=== PATIENT | male | born 1955 | race Caucasian/White ===

== ENCOUNTER 2017-01-13 08:48 | Day surgery (SDC) | payer MEDICARE, MEDICAID ==
[~2017-01-13] VITALS: Ht 190.5 cm; Wt 99.9 kg
[2017-01-13] VITALS (39 sets, daily range): BP systolic 107–167; BP diastolic 56–94; PULSE 48–88; RESP 14–43; TEMP 96.4–97.7; O2SAT 73–100; Ht 190.5 cm; Wt 99.9 kg
[~2017-01-13 08:48] MED LIST: ACET-2321 PO; ACET-2723 PO; BISA10SU8 RECTALLY; CETI-115 PO; DIPH25CA84 PO; GABA-338 PO; LIDOCAINE 1% (10mg/ml) 2ml SDV INJ ONE; MAGN400O4 PO; MELO-273 PO; MULT-933 PO; NAPR550T4 PO; TAMS0.4C47 PO; TRIA15CR3 TOP
--- OUTSIDE RECORDS SUMMARY | 2017-01-13 08:51 | XMS REPORT | Summary of Care ---
Author Author Jovany Nunez M.D. Organization Unknown Address [address] [place] [address] Phone Unavailable Care Team Providers Care Agronomy Location Manager Name Role Phone Jvoany Nunez M.D. Unavailable Unavailable Agustín Major Unavailable Unavailable Unavailable Unavailable Functional Status Name Dates Details Functional status health issues are not documented Status: Name Dates Details Cognitive status health issues are not documented Status: Problems Name Dates Details Abdominal pain (789.00, R10.9) Status: Active Nodular prostate without urinary obstruction (600.10, N40.2) Status: Active Pelvic pain (R10.2) Status: Active Skin lesion of face (709.9, L98.9) Status: Active Benign prostatic hypertrophy with urinary obstruction (600.01, N40.1) Status: Active Frequency of urination (788.41, R35.0) Status: Active Abscess of buttock (682.5, L02.31) Status: Active Malaise and fatigue (780.79, R53.81) Status: Active Rash of entire body (782.1, R21) Status: Active Tinea pedis (110.4, B35.3) Status: Active Constipation (564.00, K59.00) Status: Active Ataxic gait (781.2, R26.0) Status: Active Falls frequently (V15.88, R29.6) Status: Active Lower back pain (724.2, M54.5) Status: Active Lumbar radiculopathy (724.4, M54.16) Status: Active Spinal stenosis (724.00, M48.00) Status: Active Tension type headache (339.10, G44.209) Status: Active Medications Name Dates Details Aspirin 81 MG TABS TAKE 2 TABLET Twice daily PRN * Start 07-Nov-2015 Active Ibuprofen 200 MG Oral Tablet TAKE 1 TABLET EVERY 4 TO 6 HOURS NEEDED. * Refills: 0 * Start 07-Nov-2015 Active Allergies and Adverse Reactions Name Dates Details Iodinated Contrast Media (Allergy) Status: Active Iodine Crystals (Allergy) Status: Active Past Medical History Name Dates Details History of Plantar fasciitis (728.71, M72.2) Status: Resolved Procedures Procedure Dates Details History of Tonsillectomy History of Hernia Repair History of Plantar Fasciectomy CT HEAD WITHOUT AND WITH IV CONTRAST Ordered: 12-Sep-2016 ULTRASOUND CAROTID Ordered: 12-Sep-2016 ORTHO SPINE LUMBAR (5 VIEWS) Ordered: 15-Sep-2016 Immunization Name Dates Details Influenza on: 31-May-2012 Influenza on: 01-Jul-2013 Family History Name Dates Details Family history of diabetes mellitus (V18.0, Z83.3) Comments: Family History Status: Active Name Dates Details Family history of leukemia (V16.6, Z80.6) Status: Active Social History Name Dates Details - Status: Name Dates Details Smoker. current status unknown Current every day smoker Vital Signs Date Test Result Details 17-Sep-2016 10:26 BP Systolic 130 mm[Hg] Status: Comments: Location: ; Position: BP Diastolic 82 mm[Hg] Status: Comments: Location: ; Position: Heart Rate 86 /min Status: Comments: Location: ; Weight 199.5 lb Status: Body Mass Index Calculated 25.61 kg/m2 Status: Body Surface Area Calculated 2.17 m2 Status: 08-Sep-2016 14:50 BP Systolic 128 mm[Hg] Status: Comments: Location: ; Position: BP Diastolic 72 mm[Hg] Status: Comments: Location: ; Position: Heart Rate 96 /min Status: Comments: Location: ; Weight 200 lb Status: Body Mass Index Calculated 25.68 kg/m2 Status: Body Surface Area Calculated 2.17 m2 Status: Results Date Description Value Details 08-Sep-2016 16:19 CBC w/ Auto Diff 7150 WBC 7.8 K/uL Range: 4.5-11.0 RBC 3.98 mil/uL (Below low threshold) Range: 4.20-5.40 HGB 13.6 g/dL (Below low threshold) Range: 14.0-18.0 HCT 40.5 % (Below low threshold) Range: 42.0-53.0 MCV 101.9 fL (Above high threshold) Range: 80.0-99.0 MCH 34.2 pg (Above high threshold) Range: 27.3-32.5 MCHC 33.6 % Range: 32.0-36.0 RDW 13.9 % Range: 11.6-14.8 PLATELETS 256 K/uL Range: 150-400 MPV 7.9 fL Range: 6.0-11.0 %NEUTRO 55.2 % Range: 37.0-80.0 %LYMPHS 32.8 % Range: 13.0-50.0 %MONO 4.1 % Range: 0.0-12.0 %EOS 2.7 % Range: 0.0-7.0 %BASO 0.6 % Range: 0.0-2.5 %AMISH 4.6 % Range: 0.0-5.0 NEUTRO 4.3 K/uL Range: 2.0-6.9 LYMPHS 2.6 K/uL Range: 0.6-3.4 MONOS 0.3 K/uL Range: 0.0-0.9 EOS 0.2 K/uL Range: 0.0-0.7 BASO 0.1 K/uL Range: 0.0-0.2 16:38 Comprehensive Metabolic Panel 1212 SODIUM 137 mmol/L Range: 133-144 POTASSIUM 4.1 mmol/L Range: 3.5-5.1 CHLORIDE 100 mmol/L Range: 98-110 CARBON DIOXIDE 26.8 mmol/L Range: 23.0-33.0 ANION GAP 10 mmol/L Range: 6-16 BUN 13 mg/dL Range: 7-18 CREATININE, SERUM 0.89 mg/dL Range: 0.70-1.30 BUN:CREATININE RATIO 15 EST GFR, >60 ml/min Range: >60 EST GFR, NON-AFR [place] >60 ml/min Range: >60 Comments: EST GFR is reported in ml/min per 1.73 m2 of body surface area. ----- GLUCOSE 84 mg/dL Range: 70-100 ALK PHOSPHATASE 82 U/L Range: 46-116 TOTAL BILIRUBIN 0.30 mg/dL Range: 0.20-1.00 AST 15 U/L Range: 8-35 ALT 23 U/L Range: 16-63 ALBUMIN 4.1 g/dL Range: 3.4-5.0 TOTAL PROTEIN 7.1 g/dL Range: 6.4-8.2 A/G RATIO 1.4 units Range: 1.0-1.8 CALCIUM 8.6 mg/dL Range: 8.5-10.1 16:43 THYROID STIM. HORMONE 3602 THYROID STIM. HORMONE 1.000 uIU/mL Range: 0.550-4.780 Comments: No established reference ranges for infants and children <2 years of age----- 16:43 VITAMIN B12 3606 VITAMIN B12 579 pg/mL Range: 211-911 16:47 FREE T4 3604 FREE T4 1.05 ng/dL Range: 0.80-1.67 Plan of Care Name Dates Details Planned Observations Planned Goals not documented Planned Encounters Appointment; Provider: Schedule Radiology On 24-Sep-2016 14:30 Appointment; Provider: Schedule Radiology On 24-Sep-2016 14:00 Appointment; Provider: Agustín Major D.O. On 22-Sep-2016 11:00 Interventions Provided Labs/Procedures/Imaging* ORTHO SPINE LUMBAR (5 VIEWS); To be Done: 17 Sep 2016 Instructions Name Dates Details Instructions not documented Encounters Appointment; Agustín Major D.O. Encounter Diagnosis: Problem not documented On 08-Sep-2016 14:45 Appointment; Lizette Bell A.P.R.N. Encounter Diagnosis: Problem not documented On 07-Nov-2015 10:00 Appointment; Ian Vences M.D. Encounter Diagnosis: Problem not documented On 09:00 Appointment; Corey Bright M.D.|Tony,WILFREDO,ASHLEY, Encounter Diagnosis: Problem not documented On 30-Jan-2015 11:00 Appointment; Agustín Major D.O. Encounter Diagnosis: Problem not documented On 16-Jan-2015 13:45 Appointment; Ian Vences M.D. Encounter Diagnosis: Problem not documented On 08-Jan-2015 09:00"
--- OUTSIDE RECORDS SUMMARY | 2017-01-13 08:51 | XMS REPORT | Summary of Care ---
Author Author Agustín Major D.O. Organization Unknown Address [address] [place], [place] [id number] Phone Unavailable Care Team Providers Care Maintenance Helper Utility Engineer Name Role Phone Agustín Major D.O. Unavailable Unavailable Agustín Major Unavailable Unavailable Unavailable [...] Status: Active Constipation (564.00, K59.00) Status: Active Lower back pain (724.2, M54.5) Status: Active Tension type headache (339.10, G44.209) Status: Active Falls frequently (V15.88, R29.6) Status: Active Ataxic gait (781.2, R26.0) Status: Active Paresthesias (782.0, R20.2) Status: Active Peripheral neuropathy (356.9, G62.9) Status: Active Active smoker (305.1, F17.200) Status: Active Claustrophobia (300.29, F40.240) Status: Active Dry skin dermatitis (692.89, L85.3) Status: Active Tendonitis of shoulder, left (726.10, M75.82) Status: Active Tendonitis of shoulder, right (726.10, M75.81) Status: Active Lumbar radiculopathy (724.4, M54.16) Status: Active Spinal stenosis (724.00, M48.00) Status: Active Medications Name Dates Details Aspirin 81 MG TABS TAKE 2 TABLET Twice daily PRN * Start 07-Nov-2015 Active Ibuprofen 200 MG Oral Tablet TAKE 1 TABLET EVERY 4 TO 6 HOURS NEEDED. * Refills: 0 * Start 07-Nov-2015 Active Acetaminophen 500 MG Oral Tablet TAKE 1 TABLET EVERY 4 TO 6 HOURS NEEDED. * Refills: 0 * Start 30-Sep-2016 Active Multivitamin Men Oral Tablet TAKE 1 TABLET DAILY. * Refills: 0 * Start 30-Sep-2016 Active DiazePAM 10 MG Oral Tablet TAKE 1 TABLET 30 MINUTES PRIOR TO MRI. * Quantity: 1 Refills: 0 Major D.O., Agustín * Start 30-Sep-2016 Active Flomax 0.4 MG Oral Capsule TAKE 1 CAPSULE Daily * Refills: 0 * Start 30-Sep-2016 Active Gabapentin 300 MG Oral Capsule TAKE 1 CAPSULE Bedtime * Refills: 0 * Start 30-Sep-2016 Active Meloxicam 7.5 MG Oral Tablet Take 1 tablet daily * Quantity: 30 Refills: 0 Major D.O., Agustín * Start 20-Oct-2016 Active Allergies and Adverse Reactions Name Dates Details Iodinated Contrast Media (Allergy) Status: Active Iodine Crystals (Allergy) Status: Active Past Medical History Name Dates Details History of dizziness (V13.89, Z87.898) Status: Resolved History of headache (V13.89, Z87.898) Status: Resolved History of neck problems (V15.89, Z87.898) Status: Resolved History of Plantar fasciitis (728.71, M72.2) Status: Resolved History of tinnitus (V12.49, Z86.69) Status: Resolved Procedures Procedure Dates Details History of Tonsillectomy History of Hernia Repair History of Plantar Fasciectomy CT HEAD WITHOUT AND WITH IV CONTRAST Ordered: 17-Sep-2016 CT HEAD WITHOUT AND WITH IV CONTRAST Ordered: 12-Sep-2016 ORTHO SPINE LUMBAR (5 VIEWS) Ordered: 15-Sep-2016 XRay SHOULDER-Left Ordered: 20-Oct-2016 XRay SHOULDER-Right Ordered: 20-Oct-2016 Immunization Name Dates Details Influenza on: 31-May-2012 Influenza on: 01-Jul-2013 Family History Name Dates Details Family history of diabetes mellitus (V18.0, Z83.3) Comments: Family History Status: Active Name Dates Details Family history of cerebrovascular accident (CVA) (V17.1, Z82.3) Status: Active Name Dates Details Family history of leukemia (V16.6, Z80.6) Status: Active Social History Name Dates Details - Status: Name Dates Details Smoker. current status unknown Current every day smoker Vital Signs Date Test Result Details 31-Oct-2016 09:00 BP Systolic 132 mm[Hg] Status: Comments: Location: ; Position: BP Diastolic 70 mm[Hg] Status: Comments: Location: ; Position: Heart Rate 88 /min Status: Comments: Location: ; Weight 200 lb Status: Physical Findings 97 Status: Comments: O2 Saturation Body Mass Index Calculated 25.68 kg/m2 Status: Body Surface Area Calculated 2.17 m2 Status: 20-Oct-2016 12:54 BP Systolic 118 mm[Hg] Status: Comments: Location: ; Position: BP Diastolic 66 mm[Hg] Status: Comments: Location: ; Position: Heart Rate 62 /min Status: Comments: Location: ; Weight 204 lb Status: Physical Findings 95 Status: Comments: O2 Saturation Body Mass Index Calculated 26.19 kg/m2 Status: Body Surface Area Calculated 2.19 m2 Status: Results Date Description Value Details 01-Oct-2016 10:51 MCGRAW FibroSure 198410 Height: 74 inch Range: 0 14:35 ANTINUCLEAR ANTIBODIES 3902 ANTINUCLEAR ANTIBODIES 25 AU/mL Range: 0-120 Comments: REFERENCE VALUE INTERPRETATION 0-99 U/mL - NEGATIVE 100 - 120 U/mL - EQUIVOCAL >120 U/mL - POSITIVE--- -- 02-Oct-2016 07:37 Immunofixation, Serum [id number] Comments: Testing performed at: [DA] [facility], [address] [place] [address] [address], [place], [address], , Administrative Job Titles: OPAL Hanna MD IMMUNOFIXATION RESULT, SERUM Comment Comments: An apparent normal immunofixation pattern.----- IMMUNOGLOBULIN G, QN, SERUM 699 mg/dL (Below low threshold) Range: 700- 1600 IMMUNOGLOBULIN A, QN, SERUM 224 mg/dL Range: 61-437 IMMUNOGLOBULIN M, QN, SERUM 118 mg/dL Range: 20-172 07:37 Protein Elec + Interp, Serum [id number] Comments: [facility] performed at: [ DA] [facility], [address] [place] [address] [address], [place], [address], , Administrative Job Titles: OPAL Hanna MD PROTEIN, TOTAL, SERUM 6.9 g/dL Range: 6.0-8.5 ALBUMIN 4.4 g/dL Range: 2.9-4.4 RCUJV-8-ELNSFHII 0.2 g/dL Range: 0.0-0.4 CMTSS-5-LZQOJLGS 0.6 g/dL Range: 0.4-1.0 BETA GLOBULIN 1.0 g/dL Range: 0.7-1.3 GAMMA GLOBULIN 0.8 g/dL Range: 0.4-1.8 M-SPIKE Not Observed g/dL Range: Not Observed GLOBULIN, TOTAL 2.5 g/dL Range: 2.2-3.9 A/G RATIO 1.8 (Above high threshold) Range: 0.7-1.7 PLEASE NOTE: Comment Comments: Protein electrophoresis scan will follow via computer,mail, or mannequin mounter delivery.----- P E INTERPRETATION, S Comment Comments: The SPE pattern appears essentially unremarkable. Evidenceof monoclonal protein is not apparent.----- 07-Oct-2016 15:20 MRI LUMBAR SPINE Comments: Exam Date: 10/07/2016 13: 02Dictation Date: 10/07/2016 15:20 XMR SPINE LUMBAR 20-Oct-2016 14:10 XRay SHOULDER-BILATERAL Comments: Exam Date: 10/20/2016 13: 38Dictation Date: 10/20/2016 14:10 X SHOULDER COMP (MIN 2V) BILAT Plan of Care Name Dates Details Planned Observations Planned Goals not documented Instructions Name Dates Details Instructions not documented Encounters Appointment; Agustín Major D.O. Encounter Diagnosis: Problem not documented On 20-Oct-2016 13:15 Appointment; Agustín Major D.O. Encounter Diagnosis: Problem not documented On 01-Oct-2016 09:00 Appointment; Dio Couch M.D. Encounter Diagnosis: Problem not documented On 30-Sep-2016 09:00 Appointment; Agustín Major D.O. Encounter Diagnosis: Problem not documented On 22-Sep-2016 11:00 Appointment; Jovany Nunez M.D. Encounter Diagnosis: Problem not documented On 17-Sep-2016 10:15 Appointment; Agustín Major D.O. Encounter Diagnosis: Problem not documented On 08-Sep-2016 14:45 Appointment; Lizette Bell A.P.R.N. Encounter Diagnosis: Problem not documented On 07-Nov-2015 10:00 Appointment; Ian Vences M.D. Encounter Diagnosis: Problem not documented On 09:00 Appointment; Corey Bright M.D.,[facility], Encounter Diagnosis: Problem not documented On 30-Jan-2015 11:00 Appointment; Agustín Major D.O. Encounter Diagnosis: Problem not documented On 16-Jan-2015 13:45 Appointment; Ian Vences M.D. Encounter Diagnosis: Problem not documented On 08-Jan-2015 09:00
--- OUTSIDE RECORDS SUMMARY | 2017-01-13 08:51 | XMS REPORT | Continuity of Care Document ---
Author Author [facility] Organization [facility] Address Unknown Phone Unavailable Allergies Medications Problems Date Dx Coded Attending Type Code Diagnosis Diagnosed By 02/01/2016 UNASSIGNED DOCTORDOCTOR Lam [id number] Other chronic pain 02/01/2016 UNASSIGNED DOCTORDOCTOR Lam [id number] Spinal stenosis, site unspecified Procedures Code Description Performed By Performed On A0425 01/24/2016 A0429 01/24/2016 Results Test Result Range UR DRUGS OF ABUSE SCREEN - 08/29/16 16:30 *COCAINE NEGATIVE NEG <150 *BARBITURATES NEGATIVE NEG <200 *BENZODIAZEINE NEGATIVE NEG <200 *AMPHETAMINE NEGATIVE NEG <500 *CANNABINOIDS POSITIVE NEG <50 *OPIATES NEGATIVE NEG <300 *PCP NEGATIVE NEG <25 CBC WITH PLATELET AND DIFFERENTIAL - 08/29/16 17:11 SEGS 76.3 % NRG *BASOPHILS 0.7 % NRG *EOSINOPHILS 0.6 % NRG AUTOMATED DIFF PERFORMED NRG *LYMPHOCYTES 17.5 % NRG *MONOCYTES 4.9 % NRG *ABSOLUTE BASOPHILS 0.10 10*3/uL 0.00- 0.20 *ABSOLUTE EOSINOPHILS 0.10 10*3/uL 0.00- 0.50 *ABSOLUTE LYMPHOCYTES 2.10 10*3/uL 1.00- 3.00 *ABSOLUTE MONOCYTES 0.60 10*3/uL 0.30- 1.00 *ABSOLUTE NEUTROPHILS 9.10 10*3/uL 1.80- 7.80 MPV 7.4 fL 7.4-10.4 PLATELETS 229 10*3/uL 159-386 WBC 11.9 10*3/uL 3.6-11.2 RBC 4.19 4.06-5.63 HEMOGLOBIN 13.9 12.5-16.3 HEMATOCRIT 41.9 % 36.7-47.1 MCV 100.0 fL 80.0-100.0 MCH 33.2 pg 27.0-33.0 MCHC 33.1 32.0-36.0 RDW 13.5 % 12.3-17.0 RDWSD 47.3 37.1-47.8 COMPREHENSIVE METABOLIC PANEL - 08/29/16 17:11 BILIFUBIN TOTAL 0.40 0.20-1.00 TOTAL PROTEIN 7.4 6.4-8.2 ALBUMIN 4.3 3.4-5.0 *GLOBULIN 3.1 2.3-3.5 *A/G RATIO 1.4 1.5-2.2 ALK PHOS 81 U/L 46-116 ALT (SGPT) 24 U/L 14-59 AST (SGOT) 19 U/L 15-37 ALCOHOL - 08/29/16 17:11 ALCOHOL 0.116 NRG GFR ESTIMATION - 08/29/16 17:11 *GFR EST NON AFR [place] CITIZ[place] >90 mL/min NRG *GRFA EST AFR AMER >90 mL/min NRG MAGNESIUM - 08/29/16 17:11 MAGNESIUM 2.0 1.8-2.4 TSH - 08/29/16 17:11 TSH 0.251 u[IU]/L 0.340-4.820 PHOSPHORUS - 08/29/16 17:11 PHOSPHORUS 3.7 2.6-4.7 VITAMIN B12 & FOLATE - 08/29/16 17:11 VITAMIN B12 283 pg/mL 180-914 URINALYSIS (CULTURE PRN) - 08/29/16 20:20 *URINE APPEARANCE CLEAR CLEAR *URINE BILIRUBIN NEGATIVE NEGATIVE *URINE BLOOD NEGATIVE NEGATIVE *URINE GLUCOSE NEGATIVE NEGATIVE *URINE KETONES NEGATIVE NEGATIVE *URINE LEUKOCYTES NEGATIVE NEGATIVE *URINE NITRITES NEGATIVE NEGATIVE URINE PH 5.5 5.0-8.0 *URINE PROTEIN NEGATIVE NEGATIVE URINE SPECIFIC GRAVITY 1.020 <=1.005->= 1.030 *URINE UROBILINOGEN 0.2 0.2-1.0 *URINE COLOR YELLOW STRAW/YELL/DK YELL Encounters ACCT No. Visit Date/Time Discharge Status Pt. Type Provider Facility Loc./Unit Complaint [id number] 08/29/2016 15:38:00 2015 15:46:59 DIS Outpatient UNASSIGNED DOCTOR, DOCTOR WEAKNESS IN EXTREMITIES [id number] 08/29/2016 16:08:00 2015 01:37:47 DIS Emergency RASHAD SAMANO PERIPHERAL NEUROPATHY [id number] 01/24/2016 01:12:00 2015 03:30:00 DIS Outpatient UNASSIGNED DOCTOR, DOCTOR <PV2.3.2>Other chronic pain</PV2.3.2><PV2.3.2>CHRONIC PAIN</ PV2.3.2><PV2.3.2>Other chronic pain</PV2.3.2><PV2.3.2>Spinal stenosis, site unspecified</PV2.3.2> [id number] 01/24/2016 01:29:00 2015 03:43:56 DIS Emergency RASHAD SAMANO PAIN
--- OUTSIDE RECORDS SUMMARY | 2017-01-13 08:51 | XMS REPORT | Summary of Care ---
Author Author Agustín Major D.O. Organization Unknown Address [address], [place] [address] Phone Unavailable Care Team Providers Care Radar Tester Name Role Phone Agustín Major D.O. Unavailable [...] Lower back pain (724.2, M54.5) Status: Active Spinal stenosis (724.00, M48.00) Status: Active Tension type headache (339.10, G44.209) Status: Active Lumbar radiculopathy (724.4, M54.16) Status: Active Falls frequently (V15.88, R29.6) Status: Active Ataxic gait (781.2, R26.0) Status: Active Paresthesias (782.0, R20.2) Status: Active Peripheral neuropathy (356.9, G62.9) Status: Active Dry skin dermatitis (692.89, L85.3) Status: Active Medications Name Dates Details Aspirin [...] 10 MG Oral Tablet TAKE 1 TABLET DAILY. * Refills: 0 * Start 30-Sep-2016 Active Flomax 0.4 MG Oral Capsule TAKE 1 CAPSULE Daily * Refills: 0 * Start 30-Sep-2016 Active Gabapentin 300 MG Oral Capsule TAKE 1 CAPSULE Bedtime * Refills: 0 * Start 30-Sep-2016 Active Allergies and Adverse Reactions Name Dates [...] of Hernia Repair History of Plantar Fasciectomy ANTINUCLEAR ANTIBODIES 3902 Ordered: 30-Sep-2016 Immunofixation, Serum [id number] Ordered: 30-Sep-2016 Protein Elec + Interp, Serum [id number] Ordered: 30-Sep-2016 MRI LUMBAR SPINE Ordered: 30-Sep-2016 CT HEAD WITHOUT AND WITH IV CONTRAST Ordered: 12-Sep-2016 ORTHO SPINE LUMBAR (5 VIEWS) Ordered: 15-Sep-2016 CT HEAD WITHOUT AND WITH IV CONTRAST Ordered: 17-Sep-2016 Immunization Name Dates Details Influenza on: 31-May-2012 [...] smoker Vital Signs Date Test Result Details 01-Oct-2016 08:51 Temperature 98.5 f Status: Heart Rate 80 /min Status: Comments: Location: ; Weight 194 lb Status: Body Mass Index Calculated 24.91 kg/m2 Status: Body Surface Area Calculated 2.15 m2 Status: 30-Sep-2016 09:25 BP Systolic 120 mm[Hg] Status: Comments: Location: ; Position: BP Diastolic 68 mm[Hg] Status: Comments: Location: ; Position: Heart Rate 84 /min Status: Comments: Location: ; Weight 196 lb Status: Body Mass Index Calculated 25.17 kg/m2 Status: Body Surface Area Calculated 2.15 m2 Status: 22-Sep-2016 10:54 BP Systolic 132 mm[Hg] Status: Comments: Location: ; Position: BP Diastolic 72 mm[Hg] Status: Comments: Location: ; Position: Heart Rate 70 /min Status: Comments: Location: ; Weight 205 lb Status: Body Mass Index Calculated 26.32 kg/m2 Status: Body Surface Area Calculated 2.2 m2 Status: 17-Sep-2016 10:26 BP Systolic 130 mm[Hg] Status: Comments: Location: ; Position: BP Diastolic 82 mm[Hg] Status: Comments: Location: ; Position: Heart Rate 86 /min Status: Comments: Location: ; Weight 199.5 lb Status: Body Mass Index Calculated 25.61 kg/m2 Status: Body Surface Area Calculated 2.17 m2 Status: 08-Sep-2016 14:50 BP Systolic 128 mm[Hg] Status: BP Diastolic 72 mm[Hg] Status: Heart Rate 96 /min Status: Comments: Location: [...] >60 ml/min Range: >60 EST GFR, NON-AFR [place]ISH >60 ml/min Range: >60 Comments: EST GFR [...] 3604 FREE T4 1.05 ng/dL Range: 0.80-1.67 25-Sep-2016 08:28 CT HEAD WITHOUT IV CONTRAST Comments: Exam Date: 2015 08:14Dictation Date: 09/25/2016 08:28 XC HEAD 09:31 ULTRASOUND CAROTID Comments: Exam Date: 09/25/2016 08:14Dictation Date : 09/25/2016 09:31 XS CAROTID 10:48 MRI CERVICAL SPINE WITHOUT AND WITH CONTRAST (if Hx of Neck Surgery, [place] , MS or RA) Comments: Exam Date: 09/25/2016 09:03Dictation Date: 09/25/2016 10 :48 XMR SPINE CERVICAL WO/W SHEKHAR 30-Sep-2016 11:11 CREATINE KINASE 1300 CREATINE KINASE 173 U/L Range: 39-308 11:24 ERYTHROCYTE SED RATE 7800 ERYTHROCYTE SED RATE 7 mm/60 min. Range: 0-15 Plan of Care Name Dates Details Planned Observations Planned Goals not documented Planned Encounters Appointment; Provider: Agustín Major D.O. On 20-Oct-2016 13:15 Appointment; Provider: Schedule Radiology On 07-Oct-2016 14:00 Instructions Name Dates Details Instructions not documented Encounters Appointment; Dio Couch M.D. Encounter Diagnosis: Problem [...] not documented On 09:00 Appointment; Corey Bright M.D.|Eric|Randolph,ASHLEY|Randolph,ASHLEY, Encounter Diagnosis: Problem not documented On 30-Jan-2015 11:00 Appointment; Agustín Major D.O. Encounter Diagnosis: Problem not documented On 16-Jan-2015 13:45 Appointment; Ian Vences M.D. Encounter Diagnosis: Problem not documented On 08-Jan-2015 09:00"
--- OUTSIDE RECORDS SUMMARY | 2017-01-13 08:51 | XMS REPORT | Summary of Care ---
Author Author Agustín Major D.O. Organization Unknown Address [address], [place] [phone] Phone Unavailable Care Team Providers Care Cardiothoracic Icu Rn Name Role Phone Agustín Major D.O. Unavailable [...] Tension type headache (339.10, G44.209) Status: Active Ataxic gait (781.2, R26.0) Status: Active Lumbar radiculopathy (724.4, M54.16) Status: Active Falls frequently (V15.88, R29.6) Status: Active Medications Name Dates Details Aspirin [...] CONTRAST Ordered: 12-Sep-2016 ULTRASOUND CAROTID Ordered: 12-Sep-2016 MRI CERVICAL SPINE WITHOUT AND WITH CONTRAST (if Hx of Neck Surgery, [place], MS or RA) Ordered: 17-Sep-2016 CT HEAD WITHOUT AND WITH IV CONTRAST Ordered: 17-Sep-2016 ORTHO SPINE LUMBAR (5 VIEWS) Ordered: 15-Sep-2016 [...] smoker Vital Signs Date Test Result Details 22-Sep-2016 10:54 BP Systolic 132 mm[Hg] Status: [...] >60 ml/min Range: >60 EST GFR, NON-AFR [place] >60 ml/min Range: >60 Comments: EST GFR [...] Goals not documented Planned Encounters Appointment; Provider: Dio Couch M.D. On 30-Sep-2016 09:00 Appointment; Provider: Schedule Radiology On 25-Sep-2016 09:45 Appointment; Provider: Schedule Radiology On 25-Sep-2016 09:00 Appointment; Provider: Schedule Radiology On 25-Sep-2016 08:30 Instructions Name Dates Details Instructions not documented Encounters Appointment; Jovany Nunez M.D. Encounter Diagnosis: Problem not documented On 17-Sep-2016 10:15 Appointment; Agustín Major D.O. Encounter Diagnosis: Problem not documented On 08-Sep-2016 14:45 Appointment; Lizette Bell A.P.R.N. Encounter Diagnosis: Problem not documented On 07-Nov-2015 10:00 Appointment; Ian Vences M.D. Encounter Diagnosis: Problem not documented On 09:00 Appointment; Corey Bright M.D.|Eric|ASHLEY Dickson|Randolph,ASHLEY, Encounter Diagnosis: Problem not documented On 30-Jan-2015 11:00 Appointment; Agustín Major D.O. Encounter Diagnosis: Problem not documented On 16-Jan-2015 13:45 Appointment; Ian Vences M.D. Encounter Diagnosis: Problem not documented On 08-Jan-2015 09:00"
--- OUTSIDE RECORDS SUMMARY | 2017-01-13 08:52 | XMS REPORT | Summary of Care ---
Author Author Agustín Major D.O. Organization Unknown Address [address], [place] [id number] Phone Unavailable Care Team Providers Care Zigzag Elastic Attacher Name Role Phone Agustín Major Unavailable Unavailable Unavailable Unavailable Functional [...] >60 ml/min Range: >60 EST GFR, NON-AFR ECUADOREAN >60 ml/min Range: >60 Comments: EST GFR [...] 10 :48 XMR SPINE CERVICAL WO/W SHEKHAR Plan of Care Name Dates Details Planned Observations Planned Goals not documented Planned Encounters Appointment; Provider: Agustín Major D.O. On 20-Oct-2016 13:15 Appointment; Provider: Dio Couch M.D. On 30-Sep-2016 09:00 Instructions Name Dates Details Instructions not documented Encounters Appointment; Agustín Major D.O. Encounter Diagnosis: Problem not documented On 22-Sep-2016 11:00 Appointment; Jovany Nunez M.D. Encounter Diagnosis: Problem not documented On 17-Sep-2016 10:15 Appointment; Agustín Major D.O. Encounter Diagnosis: Problem not documented On 08-Sep-2016 14:45 Appointment; Lizette Bell A.P.R.N. Encounter Diagnosis: Problem not documented On 07-Nov-2015 10:00 Appointment; Schlotterback, Ian, M.D. Encounter Diagnosis: Problem not documented On 09:00 Appointment; Corey Bright M.D.|Eric|Randolph,ASHLEY|Randolph,ASHLEY, Encounter Diagnosis: Problem not documented On 30-Jan-2015 11:00 Appointment; Agustín Major D.O. Encounter Diagnosis: Problem not documented On 16-Jan-2015 13:45 Appointment; Ian Vences M.D. Encounter Diagnosis: Problem not documented On 08-Jan-2015 09:00"
--- OUTSIDE RECORDS SUMMARY | 2017-01-13 08:52 | XMS REPORT | Summary of Care ---
Author Author Valdez Manriquez M.D. Organization Unknown Address [address] [place] [address] [place] [address] Phone Unavailable Care Team Providers Care Repairer Sash And Door Name Role Phone Agustín Major D.O. Unavailable Valdez Manriquez M.D. Unavailable Unavailable Agustín Major Unavailable Unavailable [...] lesion of face (709.9, L98.9) Status: Active Abscess of buttock (682.5, L02.31) [...] Active Lumbar radiculopathy (724.4, M54.16) Status: Active Benign prostatic hypertrophy with urinary obstruction (600.01, N40.1) Status: Active Spinal stenosis (724.00, M48.00) Status: Active Frequency of urination (788.41, R35.0) Status: Active Medications Name Dates Details Aspirin [...] TO MRI. * Quantity: 1 Refills: 0 Agustín Major D.O. * Start 30-Sep-2016 Active Flomax 0.4 MG Oral Capsule TAKE 1 CAPSULE Daily * Refills: 0 * Start 30-Sep-2016 Active Gabapentin 300 MG Oral Capsule TAKE 1 CAPSULE Bedtime * Refills: 0 * Start 30-Sep-2016 Active Meloxicam 7.5 MG Oral Tablet Take 1 tablet daily * Quantity: 30 Refills: 0 Agustín Major D.O. * Start 20-Oct-2016 Active ZyrTEC Allergy 10 MG Oral Tablet TAKE 1 TABLET AT BEDTIME. * Refills: 0 Valdez Manriquez M.D. Start 04-Dec-2016 Active Triamcinolone Acetonide 0.1 % External Cream APPLY 2-3 TIMES DAILY TO AFFECTED AREA(S). * Refills: 0 Valdez Manriquez M.D. Start 04-Dec-2016 Active Allergies and Adverse Reactions Name Dates [...] of Hernia Repair History of Plantar Fasciectomy XRay SHOULDER-Left Ordered: 20-Oct-2016 XRay SHOULDER-Right Ordered: [...] Dates Details - Status: Name Dates Details Current every day smoker Former smoker Vital Signs Date Test Result Details 04-Dec-2016 13:15 BP Systolic 138 mm[Hg] Status: Comments: Location: ; Position: BP Diastolic 70 mm[Hg] Status: Comments: Location: ; Position: Heart Rate 78 /min Status: Comments: Location: ; Height 75 in Status: Weight 204 lb Status: Body Mass Index Calculated 25.5 kg/m2 Status: Body Surface Area Calculated 2.21 m2 Status: Results Date Description Value Details 20-Nov-2016 09:59 Urinalysis, Reflex to Microscopic or Culture PRN 8005 pH 7.5 Range: 5.0-7.5 SP GRAVITY <=1.005 (Abnormal) Range: 1.010-1.030 APPEARANCE CLEAR Range: Clear COLOR YELLOW Range: Straw-Yellow PROTEIN NEGATIVE mg/dL Range: Negative-Trace GLUCOSE NEGATIVE mg/dL Range: Negative KETONE NEGATIVE mg/dL Range: Negative BILIRUB NEGATIVE Range: Negative BLOOD NEGATIVE Range: Negative UROBIL 0.2 EU/dL Range: 0.2-1.0 NITRITE NEGATIVE Range: Negative LEUK NEGATIVE Range: Negative Plan of Care Name Dates Details Planned Observations Planned Goals not documented Planned Encounters Appointment; Provider: Valdez Manriquez M.D. On 15-Dec-2016 14:30 Instructions Name Dates Details Instructions not documented Encounters Appointment; Agustín Major D.O. Encounter Diagnosis: Problem not documented On 31-Oct-2016 09:00 Appointment; Agustín Major D.O. Encounter Diagnosis: [...] not documented On 09:00 Appointment; Corey Bright M.D.,[facility], Encounter Diagnosis: Problem not documented On 30-Jan-2015 11:00 Appointment; Agsutín Major D.O. Encounter Diagnosis: Problem not documented On 16-Jan-2015 13:45 Appointment; Ian Vences M.D. Encounter Diagnosis: Problem not documented On 08-Jan-2015 09:00
--- OUTSIDE RECORDS SUMMARY | 2017-01-13 08:52 | XMS REPORT | Summary of Care ---
Author Author Agustín Major D.O. Unknown Address [address], [place] [id number] Phone Unavailable Care Team Providers Care Tire Classifier Name Role Phone Kennedi Shafer D.O. Unavailable Unavailable Ian Vences M.D. Unavailable Unavailable Agustín Major PP Unavailable Unavailable Unavailable Functional Status Functional Status Health Issues* Name Dates Details Functional status health issues are not documented Status: Cognitive Status Health Issues* Name Dates Details Cognitive status health issues are not documented Status: Problems Name Dates Details Abdominal pain (789.00, R10.9) Status: Active Nodular prostate without urinary obstruction (600.10, N40.2) Status: Active Pelvic pain (R10.2) Status: Active Benign prostatic hypertrophy with urinary obstruction (600.01, N40.1) Status: Active Skin lesion of face (709.9, L98.9) Status: Active Lower back pain (724.2, M54.5) Status: Active Lumbar radiculopathy (724.4, M54.16) Status: Active Medications Name Dates Details CeleBREX 200 MG Oral Capsule TAKE 1 CAPSULE TWICE DAILY NEEDED. Quantity: 60 Kennedi Shafer D.O.* Started 31-May-2014 ActiveTamsulosin HCl - 0.4 MG Oral Capsule ONE TABLET AT BEDTIME * Quantity: 30 Refills: 11 Ian Vences M.D.* Started 08-Jan-2015 ActiveTraMADol HCl - 50 MG Oral Tablet TAKE 1 OR 2 TABS 3 TIMES DAILY NEEDED FOR PAIN * Quantity: 30 Refills: 0 Ian Vences M.D.* Started 08-Jan-2015 Active Allergies and Adverse Reactions Name Dates Details Iodine Crystals Status: Active Past Medical History Name Dates Details History of Plantar fasciitis (728.71, M72.2) Status: Resolved Procedures Procedure Dates Details THYROID STIM. HORMONE 3602 Ordered:16-Jan-2015 FREE T4 3604 Ordered:16-Jan-2015 VITAMIN B12 3606 Ordered:16-Jan-2015 MRI LUMBAR SPINE Ordered:16-Jan-2015 Immunization Name Dates Details Influenza Administered on:31-May-2012 Influenza Administered on:01-Jul-2013 Social History Smoking Status* Unknown if ever smoked Vital Signs Date Test Result Details 16-Jan-2015 13:46 BP Systolic 142 mm[Hg] Status: BP Diastolic 80 mm[Hg] Status: Heart Rate 90 /min Status: Weight 209 lb Status: Body Mass Index Calculated 26.83 kg/m2 Status: Body Surface Area Calculated 2.21 m2 Status: 08-Jan-2015 08:53 BP Systolic 130 mm[Hg] Status: BP Diastolic 78 mm[Hg] Status: Heart Rate 98 /min Status: Respiration Rate 16 /min Status: Temperature 97.9 f Status: Weight 206 lb Status: Height 74 in Status: O2 SAT 97 % Status: Body Mass Index Calculated 26.45 kg/m2 Status: Body Surface Area Calculated 2.2 m2 Status: Results Date Description Value Details 08-Jan-2015 09:01 Urinalysis, reflex to Micro and Culture ([facility]) 8016 pH 6.0 (Better) Range: 5.0-7.5 SP GRAVITY 1.030 (Better) Range: 1.010-1.030 APPEARANCE Clear (Better) Range: Clear COLOR Yellow (Better) Range: Straw-Yellow PROTEIN 15 mg/dL (Abnormal) Range: Negative-Trace GLUCOSE Negative mg/dL (Better) Range: Negative KETONES Negative mg/dL (Better) Range: Negative BILIRUBIN Negative (Better) Range: Negative BLOOD Negative (Better) Range: Negative UROBIL 0.2 EU/dL (Better) Range: 0.2-1.0 NITRITE Negative (Better) Range: Negative LEUKOCYTES Negative (Better) Range: Negative 11:12 CBC w/ Auto Diff 7150 WBC 10.4 K/uL (Better) Range: 4.5-11.0 RBC 4.48 mil/uL (Better) Range: 4.20-5.40 HGB 14.5 g/dL (Better) Range: 14.0-18.0 HCT 44.9 % (Better) Range: 42.0-53.0 MCV 100.1 fL (Above high threshold) Range: 80.0-99.0 MCH 32.4 pg (Better) Range: 27.3-32.5 MCHC 32.4 % (Better) Range: 32.0-36.0 RDW 14.0 % (Better) Range: 11.6-14.8 PLATELETS 224 K/uL (Better) Range: 150-400 MPV 9.0 fL (Better) Range: 6.0-11.0 %NEUTRO 66.0 % (Better) Range: 37.0-80.0 %LYMPHS 21.7 % (Better) Range: 13.0-50.0 %MONO 4.5 % (Better) Range: 0.0-12.0 %EOS 3.5 % (Better) Range: 0.0-7.0 %BASO 0.7 % (Better) Range: 0.0-2.5 %AMISH 3.5 % (Better) Range: 0.0-5.0 NEUTRO 6.9 K/uL (Better) Range: 2.0-6.9 LYMPHS 2.3 K/uL (Better) Range: 0.6-3.4 MONOS 0.5 K/uL (Better) Range: 0.0-0.9 EOS 0.4 K/uL (Better) Range: 0.0-0.7 BASO 0.1 K/uL (Better) Range: 0.0-0.2 11:21 Comprehensive Metabolic Panel 1212 SODIUM 134 mmol/L (Better) Range: 133-144 POTASSIUM 3.9 mmol/L (Better) Range: 3.5-5.1 CHLORIDE 99 mmol/L (Better) Range: 98-110 CARBON DIOXIDE 24.2 mmol/L (Better) Range: 23.0-33.0 ANION GAP 11 mmol/L (Better) Range: 6-16 BUN 12 mg/dL (Better) Range: 7-18 CREATININE, SERUM 0.83 mg/dL (Better) Range: 0.43-1.13 BUN:CREATININE RATIO 14 (Better) EST GFR, >60 ml/min (Better) Range: >60 EST GFR, NON-AFR ALGERIAN >60 ml/min (Better) Range: >60 Comments: EST GFR is reported in ml/min per 1.73 m2 of body surface area. For -Mexican, please multiple result by 1.2.----- GLUCOSE 100 mg/dL (Better) Range: 70-100 ALK PHOSPHATASE 85 U/L (Better) Range: 46-116 TOTAL BILIRUBIN 0.50 mg/dL (Better) Range: 0.20-1.00 AST 18 U/L (Better) Range: 8-35 ALT 26 U/L (Better) Range: 16-63 Comments: Please note new reference ranges. Effective 12/21/2014.----- ALBUMIN 4.0 g/dL (Better) Range: 3.4-5.0 TOTAL PROTEIN 7.5 g/dL (Better) Range: 6.4-8.2 A/G RATIO 1.1 units (Better) Range: 1.0-1.8 CALCIUM 8.8 mg/dL (Better) Range: 8.5-10.1 11:31 PSA ( PROSTATE SPECIFIC ANTIGEN) 3100 PROSTATE SPECIFIC ANTIGEN 0.820 ng/mL (Better) Range: 0.000-4.000 15-Jan-2015 08:38 ULTRASOUND RENAL SONO Comments: Exam Date: 08: 10Dictation Date: 08:38 XS RENAL SONO (Better) Plan of Care Planned Observations* Name Dates Details Planned Goals not documented Goal Planned Encounters* Appointment; Provider: Dio Couch On 14-Feb-2015 09:00 * Appointment; Provider: Corey Bright On 30-Jan-2015 11:00 Instructions * Instructions not documented Encounters Appointment; Agustín Major Encounter Diagnosis: Problem not documented On 16-Jan-2015 13:45 Appointment; Ian Vences Encounter Diagnosis: Problem not documented On 08-Jan-2015 09:00 Appointment; Kennedi Shafer Encounter Diagnosis: Problem not documented On 31-May-2014 08:30
--- OUTSIDE RECORDS SUMMARY | 2017-01-13 08:52 | XMS REPORT ---
Author Author GENERATED, SYSTEM Organization Unknown Address Unknown Phone Unavailable Care Team Providers Care Shellacker Name Role Phone CHEEMA, DO, [place] [phone] Reason For Visit Chief Complaint PERIPHERAL NEUROPATHY Social History Functional Status Vital Signs Results Chemistry from 08/29/2016 5:11 PMSODIUM 139 MMOL/L (136-145 MMOL/L) POTASSIUM 4.1 MMOL/L (3.5-5.1 MMOL/L) CHLORIDE 103 MMOL/L (98-107 MMOL/L) TCO2 21.0 MMOL/L (21.0-32.0 MMOL/L) *ANION GAP 15.0 MMOL/L (8.0-16.0 MMOL/L) BUN 11 MG/DL (7-18 MG/DL) CREATININE 0.84 MG/DL (0.70-1.30 MG/DL) *BUN/CREATININE RATIO 13.1 (9.1-17.0 ) GLUCOSE 76 MG/DL (65-99 MG/DL) *GFR EST NON AFR IRAQI >90 ML/MIN *GFR EST AFR AMER >90 ML/MIN CALCIUM 8.8 MG/DL (8.5-10.1 MG/DL) BILIRUBIN TOTAL 0.40 MG/DL (0.20-1.00 MG/DL) TOTAL PROTEIN 7.4 GM/DL (6.4-8.2 GM/DL) ALBUMIN 4.3 GM/DL (3.4-5.0 GM/DL) *GLOBULIN 3.1 GM/DL (2.3-3.5 GM/DL) *A/G RATIO 1.4 MG/DL L (1.5-2.2 MG/DL) ALK PHOS 81 U/L (46-116 U/L) ALT (SGPT) 24 U/L (14-59 U/L) AST (SGOT) 19 U/L (15-37 U/L) MAGNESIUM 2.0 MG/DL (1.8-2.4 MG/DL) PHOSPHORUS 3.7 MG/DL (2.6-4.7 MG/DL) TSH 0.251 UIU/ML L (0.340-4.820 UIU/ML) ALCOHOL 0.116 GM/DL VITAMIN B12 283 PG/ML (180-914 PG/ML) FOLATES 19.7 NG/ML (>3.0- NG/ML) Chemistry from 08/29/2016 4:30 PM*COCAINE NEGATIVE (NEG <150 ) *PCP NEGATIVE (NEG <25 ) *CANNABINOIDS POSITIVE A (NEG <50 ) *BENZODIAZEINE NEGATIVE (NEG <200 ) *AMPHETAMINE NEGATIVE (NEG <500 ) *BARBITURATES NEGATIVE (NEG <200 ) *OPIATES NEGATIVE (NEG <300 ) Hematology from 08/29/2016 5:11 PMWBC 11.9 X10e3/UL H (3.6-11.2 X10e3/UL) RBC 4.19 X10e6/UL (4.06-5.63 X10e6/UL) HEMOGLOBIN 13.9 G/DL (12.5-16.3 G/DL) HEMATOCRIT 41.9 % (36.7-47.1 %) *MCV 100.0 FL (80.0-100.0 FL) *MCH 33.2 PG H (27.0-33.0 PG) *MCHC 33.1 G/DL (32.0-36.0 G/DL) *RDW 13.5 % (12.3-17.0 %) *RDWSD 47.3 (37.1-47.8 ) PLATELET 229 X10e3/UL (159-386 X10e3/UL) *MPV 7.4 FL (7.4-10.4 FL) AUTOMATED DIFF PERFORMED SEGS 76.3 % *LYMPHOCYTES 17.5 % *MONOCYTES 4.9 % *EOSINOPHILS 0.6 % *BASOPHILS 0.7 % *ABSOLUTE NEUTROPHILS 9.10 X10e3/UL H (1.80-7.80 X10e3/UL) *ABSOLUTE LYMPHOCYTES 2.10 X10e3/UL (1.00-3.00 X10e3/UL) *ABSOLUTE MONOCYTES 0.60 X10e3/UL (0.30-1.00 X10e3/UL) *ABSOLUTE EOSINOPHILS 0.10 X10e3/UL (0.00-0.50 X10e3/UL) *ABSOLUTE BASOPHILS 0.10 X10e3/UL (0.00-0.20 X10e3/UL) Urinalysis from 08/29/2016 8:20 PM*URINE COLOR YELLOW (STRAW/YELL/DK YELL ) *URINE APPEARANCE CLEAR (CLEAR ) URINE PH 5.5 (5.0-8.0 ) URINE SPECIFIC GRAVITY 1.020 (<=1.005->=1.030 ) *URINE GLUCOSE NEGATIVE MG/DL (NEGATIVE MG/DL) *URINE BILIRUBIN NEGATIVE (NEGATIVE ) *URINE KETONES NEGATIVE MG/DL (NEGATIVE MG/DL) *URINE BLOOD NEGATIVE (NEGATIVE ) *URINE PROTEIN NEGATIVE MG/DL (NEGATIVE MG/DL) *URINE UROBILINOGEN 0.2 EU/DL (0.2-1.0 EU/DL) *URINE NITRITES NEGATIVE (NEGATIVE ) *URINE LEUKOCYTES NEGATIVE (NEGATIVE ) Problems Encounter Diagnosis No relevant problems exist. Encounters Encounter Diagnosis No relevant problems exist. Plan of Care Procedures No relevant procedures performed. Immunizations No immunizations administered or ordered. Hospital Course Hospital Discharge Instructions Allergies, Adverse Reactions, Alerts * iodine causes unspecified. * Latex Allergy has not been assessed. * IV Contrast Allergy has not been assessed. Medication Medication reconciliation has not been performed.
--- OUTSIDE RECORDS SUMMARY | 2017-01-13 08:52 | XMS REPORT ---
Author Author GENERATED, SYSTEM Organization Unknown Address Unknown Phone Unavailable Care Team Providers Care Access Clerk Name Role Phone DO CHEEMA ALAN [phone] Reason For Visit Chief Complaint WEAKNESS IN EXTREMITIES Social History Functional Status Vital Signs Results Problems Encounter Diagnosis No relevant problems exist. [...]
--- OUTSIDE RECORDS SUMMARY | 2017-01-13 08:52 | XMS REPORT | Summary of Care ---
Author Author Kennedi Shafer D.O. Organization Unknown Address [address], [place] [id number] Phone Unavailable Care Team Providers Care Pumper Gauger Apprentice Name Role Phone Kennedi Shafer D.O. Unavailable Unavailable Agustín Major PP Unavailable Unavailable [...] with urinary obstruction (600.01, N40.1) Status: Active Plantar fasciitis (728.71, M72.2) Status: Active Medications Name Dates Details CeleBREX 200 MG Oral Capsule TAKE 1 CAPSULE TWICE DAILY NEEDED. Quantity: 60 Kennedi Shafer.O.* Started 31-May-2014 Active Allergies and Adverse Reactions Name Dates Details No Known Drug Allergies Status: Active Procedures Procedure Dates Details Procedures not documented Immunization Name Dates Details Influenza Administered on:31-May-2012 Influenza Administered on:01-Jul-2013 Social History Smoking Status* Unknown if ever smoked Vital Signs Date Test Result Details No Known Vitals to report Results Date Description Value Details Results not documented Plan of Care Planned Observations* Name Dates Details Planned Goals not documented Goal Instructions * Instructions not documented Encounters Appointment; Kennedi Shafer Encounter Diagnosis: Problem not documented On 31-May-2014 08:30
--- OUTSIDE RECORDS SUMMARY | 2017-01-13 08:52 | XMS REPORT | Summary of Care ---
Demographics Preferred Language Burkinan Marital Status Unknown Taoist Affiliation Unknown Race Other Race Ethnic Group Unknown Author Author Agustín Major D.O. Organization Unknown Address [address], [place] [id number] Phone Unavailable Care Team Providers Care Secretary Receptionist Name Role Phone Agustín Major Unavailable Unavailable [...] Lower back pain (724.2, M54.5) Status: Active Benign prostatic hypertrophy with urinary obstruction (600.01, N40.1) Status: Active Frequency of urination (788.41, R35.0) Status: Active Abscess of buttock (682.5, L02.31) Status: Active Malaise and fatigue (780.79, R53.81) Status: Active Rash of entire body (782.1, R21) Status: Active Tinea pedis (110.4, B35.3) Status: Active Constipation (564.00, K59.00) Status: Active Lumbar radiculopathy (724.4, M54.16) Status: Active Falls frequently (V15.88, R29.6) Status: Active Spinal stenosis (724.00, M48.00) Status: [...] of Hernia Repair History of Plantar Fasciectomy Procedures not documented Immunization Name Dates Details Influenza on: 31-May-2012 Influenza on: 01-Jul-2013 Family History Name Dates Details Family history of diabetes mellitus (V18.0, Z83.3) Comments: Family History Status: Active Name Dates Details Family history of leukemia (V16.6, Z80.6) Status: Active Social History Name Dates Details - Status: Name Dates Details Smoker. current status unknown Current every day smoker Vital Signs Date Test Result Details 08-Sep-2016 14:50 BP Systolic 128 mm[Hg] Status: [...] >60 ml/min Range: >60 EST GFR, NON-AFR ALGERIAN >60 ml/min Range: >60 Comments: EST GFR [...] Encounters Appointment; Provider: Agustín Major D.O. On 22-Sep-2016 11:00 Instructions Name Dates Details Instructions not documented [...]
--- OUTSIDE RECORDS SUMMARY | 2017-01-13 08:52 | XMS REPORT | Summary of Care ---
Author Author Agustín Major D.O. Organization Unknown Address [address], [place] [id number] Phone Unavailable Care Team Providers Care Greenhouse Grower Name Role Phone Agustín Major D.O. Unavailable Unavailable Agustín Major Unavailable Unavailable Unavailable Unavailable Functional Status Name Dates Details Functional status health issues are not documented Status: Name Dates Details Cognitive status health issues are not documented Status: Problems Name Dates Details Abdominal pain (789.00, R10.9) Status: Active Pelvic pain (R10.2) Status: Active [...] Active Falls frequently (V15.88, R29.6) Status: Active Paresthesias (782.0, R20.2) Status: Active Active smoker (305.1, F17.200) Status: Active Claustrophobia (300.29, F40.240) Status: Active Dry skin dermatitis (692.89, L85.3) Status: Active Tendonitis of shoulder, left (726.10, M75.82) Status: Active Tendonitis of shoulder, right (726.10, M75.81) Status: Active Frequency of urination (788.41, R35.0) Status: Active Ataxic gait (781.2, R26.0) Status: Active Peripheral neuropathy (356.9, G62.9) Status: Active Neck pain (723.1, M54.2) Status: Active Spinal stenosis (724.00, M48.00) Status: Active Nodular prostate without urinary obstruction (600.10, N40.2) Status: Active Incomplete bladder emptying (788.21, R33.9) Status: Active Pre-operative exam (V72.84, Z01.818) Status: Active Benign prostatic hypertrophy with urinary obstruction (600.01, N40.1) Status: Active Lumbar radiculopathy (724.4, M54.16) Status: Active Medications Name Dates Details Ibuprofen 200 MG Oral Tablet TAKE 1 TABLET EVERY 4 TO 6 HOURS NEEDED. * Start 07-Nov-2015 Active Acetaminophen 500 MG [...] Agustín Major D.O. * Start 20-Oct-2016 Active Allergies and Adverse [...] smoker Vital Signs Date Test Result Details 07-Jan-2017 10:22 BP Systolic 118 mm[Hg] Status: Comments: Location: ; Position: BP Diastolic 78 mm[Hg] Status: Comments: Location: ; Position: Heart Rate 70 /min Status: Comments: Location: ; Weight 222 lb Status: Physical Findings 96 Status: Comments: O2 Saturation Body Mass Index Calculated 27.75 kg/m2 Status: Body Surface Area Calculated 2.29 m2 Status: Results Date Description Value Details 15-Dec-2016 08:24 CBC w/ Auto Diff 7150 WBC 6.2 K/uL Range: 4.5-11.0 RBC 3.94 mil/uL (Below low threshold) Range: 4.20-5.40 HGB 12.9 g/dL (Below low threshold) Range: 14.0-18.0 HCT 38.7 % (Below low threshold) Range: 42.0-53.0 MCV 98.3 fL Range: 80.0-99.0 MCH 32.8 pg (Above high threshold) Range: 27.3-32.5 MCHC 33.4 % Range: 32.0-36.0 RDW 14.0 % Range: 11.6-14.8 PLATELETS 147 K/uL (Below low threshold) Range: 150-400 MPV 9.5 fL Range: 6.0-11.0 %NEUTRO 48.4 % Range: 37.0-80.0 %LYMPHS 36.1 % Range: 13.0-50.0 %MONO 7.1 % Range: 0.0-12.0 %EOS 4.7 % Range: 0.0-7.0 %BASO 0.4 % Range: 0.0-2.5 %AMISH 3.3 % Range: 0.0-5.0 NEUTRO 3.0 K/uL Range: 2.0-6.9 LYMPHS 2.3 K/uL Range: 0.6-3.4 MONOS 0.4 K/uL Range: 0.0-0.9 EOS 0.3 K/uL Range: 0.0-0.7 BASO 0.0 K/uL Range: 0.0-0.2 08:50 Comprehensive Metabolic Panel 1212 SODIUM 139 mmol/L Range: 133-144 POTASSIUM 4.7 mmol/L Range: 3.5-5.1 CHLORIDE 103 mmol/L Range: 98-110 CARBON DIOXIDE 25.2 mmol/L Range: 23.0-33.0 ANION GAP 11 mmol/L Range: 6-16 BUN 13 mg/dL Range: 7-18 CREATININE, SERUM 0.92 mg/dL Range: 0.70-1.30 BUN:CREATININE RATIO 14 EST GFR, >60 ml/min Range: >60 EST GFR, NON-AFR GHANAIAN >60 ml/min Range: >60 Comments: EST GFR is reported in ml/min per 1.73 m2 of body surface area. ----- GLUCOSE 80 mg/dL Range: 70-100 ALK PHOSPHATASE 69 U/L Range: 46-116 TOTAL BILIRUBIN 0.70 mg/dL Range: 0.20-1.00 AST 24 U/L Range: 8-35 ALT 30 U/L Range: 16-63 ALBUMIN 4.1 g/dL Range: 3.4-5.0 TOTAL PROTEIN 7.4 g/dL Range: 6.4-8.2 A/G RATIO 1.2 units Range: 1.0-1.8 CALCIUM 8.7 mg/dL Range: 8.5-10.1 15:18 PSA ( PROSTATE SPECIFIC ANTIGEN) 3100 PROSTATE SPECIFIC ANTIGEN 0.510 ng/mL Range: 0.000-4.000 06-Jan-2017 15:05 Urinalysis, Reflex to Microscopic or Culture PRN 8005 pH 6.5 Range: 5.0-7.5 SP GRAVITY <=1.005 (Abnormal) Range: 1.010-1.030 APPEARANCE CLEAR Range: Clear COLOR YELLOW Range: Straw-Yellow PROTEIN NEGATIVE mg/dL Range: Negative-Trace GLUCOSE NEGATIVE mg/dL Range: Negative KETONE NEGATIVE mg/dL Range: Negative BILIRUB NEGATIVE Range: Negative BLOOD NEGATIVE Range: Negative UROBIL 0.2 EU/dL Range: 0.2-1.0 NITRITE NEGATIVE Range: Negative LEUK NEGATIVE Range: Negative 15:13 CBC w/ Auto Diff 7150 Comments: Manual differential indicated.DOS: 01/13/2017 DR: Dr Manriquez PLACE: [facility] WBC 7.0 K/uL Range: 4.5-11.0 RBC 3.88 mil/uL (Below low threshold) Range: 4.20-5.40 HGB 12.8 g/dL (Below low threshold) Range: 14.0-18.0 HCT 38.1 % (Below low threshold) Range: 42.0-53.0 MCV 98.3 fL Range: 80.0-99.0 MCH 33.0 pg (Above high threshold) Range: 27.3-32.5 MCHC 33.6 % Range: 32.0-36.0 RDW 14.2 % Range: 11.6-14.8 PLATELETS 225 K/uL Range: 150-400 MPV 7.6 fL Range: 6.0-11.0 15:14 PROTIME PANEL 7000 Comments: DOS: 01/13/2017 DR: Dr Declan HENDRIX: [facility] PROTIME 12.7 secs Range: 12.0-14.9 INR 0.99 15:15 PTT 7500 Comments: DOS: 01/13/2017 DRSteve HENDRIX: [facility] PTT 29.8 secs Range: 23.0-34.7 15:32 Comprehensive Metabolic Panel 1212 Comments: DOS: 01/13/2017 DRSteve HENDRIX: [facility] SODIUM 137 mmol/L Range: 133-144 POTASSIUM 4.2 mmol/L Range: 3.5-5.1 CHLORIDE 104 mmol/L Range: 98-110 CARBON DIOXIDE 25.0 mmol/L Range: 23.0-33.0 ANION GAP 8 mmol/L Range: 6-16 BUN 15 mg/dL Range: 7-18 CREATININE, SERUM 1.01 mg/dL Range: 0.70-1.30 BUN:CREATININE RATIO 15 EST GFR, >60 ml/min Range: >60 EST GFR, NON-AFR GHANAIAN >60 ml/min Range: >60 Comments: EST GFR is reported in ml/min per 1.73 m2 of body surface area. ----- GLUCOSE 102 mg/dL (Above high threshold) Range: 70-100 ALK PHOSPHATASE 80 U/L Range: 46-116 TOTAL BILIRUBIN 0.40 mg/dL Range: 0.20-1.00 AST 19 U/L Range: 8-35 ALT 33 U/L Range: 16-63 ALBUMIN 3.8 g/dL Range: 3.4-5.0 TOTAL PROTEIN 7.0 g/dL Range: 6.4-8.2 A/G RATIO 1.2 units Range: 1.0-1.8 CALCIUM 8.3 mg/dL (Below low threshold) Range: 8.5-10.1 15:38 Manual Differential 7400 SEGS 50 % Range: 37-80 BANDS 1 % Range: 0-7 LYMPH 36 % Range: 13-50 MONO 5 % Range: 0-12 EOSIN 6 % Range: 0-7 BASO 0 % Range: 0-3 ANEL LYMPH 1 % (Above high threshold) Range: 0-0 META 0 % Range: 0-0 MYELO 1 % (Above high threshold) Range: 0-0 PRO 0 % Range: 0-0 BLAST 0 % Range: 0-0 NUC RBC 0 /100 WBC Range: 0-0 SMUDGE 0 /100 WBC PLATELET Adequate Range: Adequate MACROCYT Slight 15:44 XRay CHEST-PA & LAT Comments: Exam Date: 01/06/2017 15:13Dictation Date: 01/06/2017 15:44 X CHEST PA & LAT 15:51 ECG/ EKG Preop Electro CardioGram Plan of Care Name Dates Details Planned Observations Planned Goals not documented Planned Encounters Appointment; Provider: Agustín Major D.O. On 11-Mar-2017 10:45 Appointment; Provider: Valdez Manriquez M.D. On 13-Jan-2017 08:30 Instructions Name Dates Details Instructions not documented Encounters Appointment; Valdez Manriquez M.D. Encounter Diagnosis: Problem not documented On 29-Dec-2016 08:15 Appointment; Valdez Manriquez M.D. Encounter Diagnosis: Problem not documented On 15-Dec-2016 14:30 Appointment; Dio Couch M.D. Encounter Diagnosis: Problem not documented On 12-Dec-2016 10:30 Appointment; Valdez Manriquez M.D. Encounter Diagnosis: Problem not documented On 04-Dec-2016 13:15 Appointment; Agustín Major D.O. Encounter Diagnosis: [...] not documented On 09:00 Appointment; Corey Bright M.D.,[facility], Encounter Diagnosis: Problem not documented On 30-Jan-2015 11:00 Appointment; Agustín Major D.O. Encounter Diagnosis: Problem not documented On 16-Jan-2015 13:45 Appointment; Ian Vences M.D. Encounter Diagnosis: Problem not documented On 08-Jan-2015 09:00
--- OUTSIDE RECORDS SUMMARY | 2017-01-13 08:52 | XMS REPORT | Summary of Care ---
Author Author Ian Vences M.D. Organization Unknown Address [address], [place] [id number] Phone Unavailable Care Team Providers Care Clinical Audiologist Name Role Phone Ian Vences M.D. Unavailable Unavailable Agustín Major [...] Abscess of buttock (682.5, L02.31) Status: Active Medications Name Dates Details Tamsulosin HCl - 0.4 MG Oral Capsule ONE TABLET AT BEDTIME Quantity: 30 Ian Vences M.D.* Started 08-Jan-2015 ActiveSulfamethoxazole-TMP DS 800-160 MG Oral Tablet 1 bid for 14 days * Quantity: 28 Refills: 3 Ian Vences M.D.* Started Active Allergies and Adverse Reactions Name Dates Details Iodine Crystals Status: Active Past Medical History Name Dates Details History of Plantar fasciitis (728.71, M72.2) Status: Resolved Procedures Procedure Dates Details History of Tonsillectomy History of Hernia Repair History of Plantar Fasciectomy Procedures not documented Immunization Name Dates Details Influenza Administered on:31-May-2012 Influenza Administered on:01-Jul-2013 Family History Unknown Family Member* Name Dates Details Family history of diabetes mellitus (V18.0, Z83.3) Comments: Family History Status: Active Father* Name Dates Details Family history of leukemia (V16.6, Z80.6) Status: Active Social History Name Dates Details Smoking Status* Smoker. current status unknown * Current every day smoker Vital Signs Date Test Result Details 09:01 BP Systolic 114 mm[Hg] Status: BP Diastolic 80 mm[Hg] Status: Heart Rate 115 /min Status: Temperature 98.8 f Status: Weight 202.125 lb Status: O2 SAT 98 % Status: Body Mass Index Calculated 25.95 kg/m2 Status: Body Surface Area Calculated 2.18 m2 Status: Results Date Description Value Details Results not documented Plan of Care Planned Observations* Name Dates Details Planned Goals not documented Goal Planned Encounters* Appointment; Provider: Schedule Radiology On 19-Feb-2015 13:00 Instructions * Instructions not documented Encounters Appointment; Ian Vences Encounter Diagnosis: Problem not documented On 09:00 Appointment; Corey Bright Encounter Diagnosis: Problem not documented On 30-Jan-2015 11:00 Appointment; Agustín Major Encounter Diagnosis: Problem not documented On 16-Jan-2015 13:45 Appointment; Ian Vences Encounter Diagnosis: Problem not documented On 08-Jan-2015 09:00 Appointment; Kennedi Shafer Encounter Diagnosis: Problem not documented On 31-May-2014 08:30
--- OUTSIDE RECORDS SUMMARY | 2017-01-13 08:53 | XMS REPORT | Summary of Care ---
Author Author Dio Couch M.D. Unknown Address Unknown Phone Unavailable Care Team Providers Care Acquisitions Librarian Name Role Phone Agustín Major D.O. Unavailable Unavailable Rosalee Couch M.D. Unavailable Unavailable Agustín Major Unavailable Unavailable [...] Active Neck pain (723.1, M54.2) Status: Active Medications Name Dates Details Ibuprofen [...] of Hernia Repair History of Plantar Fasciectomy CBC w/ Auto Diff 7150 Ordered: 04-Dec-2016 Comprehensive Metabolic Panel 1212 Ordered: 04-Dec-2016 PSA ( PROSTATE SPECIFIC ANTIGEN) 3100 Ordered: 04-Dec-2016 XRay SHOULDER-Left Ordered: 20-Oct-2016 XRay SHOULDER-Right Ordered: [...] Provider: Valdez Manriquez M.D. On 15-Dec-2016 14:30 Interventions Provided Medication Changes* ZyrTEC Allergy 10 MG Oral Tablet - Stop Instructions Name Dates Details Instructions not documented [...] not documented On 09:00 Appointment; Corey Bright M.D.,[facility], Encounter Diagnosis: Problem not documented On 30-Jan-2015 11:00 Appointment; Agustín Major D.O. Encounter Diagnosis: Problem not documented On 16-Jan-2015 13:45 Appointment; Ian Vences M.D. Encounter Diagnosis: Problem not documented On 08-Jan-2015 09:00
--- OUTSIDE RECORDS SUMMARY | 2017-01-13 08:53 | XMS REPORT ---
Author Author GENERATED, SYSTEM Organization Unknown Address Unknown Phone Unavailable Care Team Providers Care Rn Unit Manager Name Role Phone DO CHEEMA ALAN [phone] Reason For Visit Chief Complaint PAIN Social History Functional Status Vital Signs Results Problems Encounter Diagnosis No relevant problems exist. Encounters Encounter Diagnosis No relevant problems exist. Plan of Care Procedures No relevant procedures performed. Immunizations No immunizations administered or ordered. Hospital Course Hospital Discharge Instructions Allergies, Adverse Reactions, Alerts * Latex Allergy has not been assessed. * IV Contrast Allergy has not been assessed. Medication Medication reconciliation has not been performed.
--- OUTSIDE RECORDS SUMMARY | 2017-01-13 08:53 | XMS REPORT ---
Author Author GENERATED, SYSTEM Organization Unknown Address Unknown Phone Unavailable Care Team Providers Care Corrugator Machine Operator Name Role Phone DO CHEEMA ALAN [phone] Reason For Visit Chief Complaint CHRONIC PAIN Social History Functional Status Vital Signs [...]
--- OUTSIDE RECORDS SUMMARY | 2017-01-13 08:53 | XMS REPORT | Summary of Care ---
Author Author Lizette Bell APRN Organization Unknown Address [address] [place], [place] [address] Phone Unavailable Care Team Providers Care Garnett Mechanic Name Role Phone Lizette Bell APRN Unavailable Unavailable Vangie Dickson, Ian Unavailable Unavailable Agustín Major PP Unavailable Unavailable [...] Status: Active Constipation (564.00, K59.00) Status: Active Medications Name Dates Details Sulfamethoxazole-TMP DS 800-160 MG TABS 1 bid for 14 days Quantity: 28 Ian Vences M.D.* Started ActiveAspirin 81 MG Oral Tablet TAKE 2 TABLET Twice daily PRN * Refills: 0 * Started 07-Nov-2015 ActiveIbuprofen 200 MG Oral Tablet TAKE 1 TABLET EVERY 4 TO 6 HOURS NEEDED. * Refills: 0 * Started 07-Nov-2015 ActiveLotrimin Ultra 1 % External Cream APPLY SPARINGLY TO AFFECTED AREA(S) ONCE DAILY * Quantity: 1 Refills: 0 Lizette Bell SOFTWARE IMPLEMENTATION PROJECT MANAGER* Started 07-Nov-2015 [id number] GM Tube Aluminum Acetate External Solution USE DIRECTED. * Quantity: 1 Refills: 0 Lizette Bell APRN* Started 07-Nov-2015 [id number] ML Bottle Polyethylene Glycol 3350 Oral Powder MIX 1/2 TO 1 CAPFUL IN 8 OUNCES OF LIQUID AND DRINK DAILY TO MAINTAIN SOFT REGULAR STOOLS. * Quantity: 1 Refills: 0 Lizette Bell SOFTWARE IMPLEMENTATION PROJECT MANAGER* Started 07-Nov-2015 [id number] GM Bottle PredniSONE 20 MG Oral Tablet 40mg for three days 20mg for 3 days * Quantity: 9 Refills: 0 Lizette Bell APRN* Started 07-Nov-2015 Active Allergies and Adverse Reactions Name Dates Details Iodinated Contrast Media Status: Active Iodine Crystals Status: Active Past Medical History [...] smoker Vital Signs Date Test Result Details 07-Nov-2015 09:58 BP Systolic 142 mm[Hg] Status: BP Diastolic 82 mm[Hg] Status: Temperature 99 f Status: Heart Rate 119 /min Status: Weight 203 lb Status: O2 SAT 98 % Status: Body Mass Index Calculated 26.06 kg/m2 Status: Body Surface Area Calculated 2.19 m2 Status: Results Date Description Value Details 07-Nov-2015 11:25 Comprehensive Metabolic Panel 1212 SODIUM 138 mmol/L (Better) Range: 133-144 POTASSIUM 4.0 mmol/L (Better) Range: 3.5-5.1 CHLORIDE 101 mmol/L (Better) Range: 98-110 CARBON DIOXIDE 21.9 mmol/L (Below low threshold) Range: 23.0-33.0 ANION GAP 15 mmol/L (Better) Range: 6-16 BUN 18 mg/dL (Better) Range: 7-18 CREATININE, SERUM 1.10 mg/dL (Better) Range: 0.70-1.30 Comments: Please note new reference ranges effective 2015.----- BUN:CREATININE RATIO 16 (Better) EST GFR, >60 ml/min (Better) Range: >60 EST GFR, NON-AFR BOTSWANAN >60 ml/min (Better) Range: >60 Comments: EST GFR is reported in ml/min per 1.73 m2 of body surface area. For -[place]yr[place], please multiple result by 1.2.----- GLUCOSE 113 mg/dL (Above high threshold) Range: 70-100 ALK PHOSPHATASE 105 U/L (Better) Range: 46-116 TOTAL BILIRUBIN 0.30 mg/dL (Better) Range: 0.20-1.00 AST 19 U/L (Better) Range: 8-35 ALT 26 U/L (Better) Range: 16-63 Comments: Please note new reference ranges. Effective 12/21/2014.----- ALBUMIN 4.3 g/dL (Better) Range: 3.4-5.0 TOTAL PROTEIN 7.5 g/dL (Better) Range: 6.4-8.2 A/G RATIO 1.3 units (Better) Range: 1.0-1.8 CALCIUM 8.9 mg/dL (Better) Range: 8.5-10.1 11:25 C REACTIVE PROTEIN, CRP 2030 C REACTIVE PROTEIN 0.8 mg/dL (Better) Range: 0.0-0.9 11:31 CBC w/ Auto Diff 7150 WBC 7.7 K/uL (Better) Range: 4.5-11.0 RBC 4.31 mil/uL (Better) Range: 4.20-5.40 HGB 14.3 g/dL (Better) Range: 14.0-18.0 HCT 42.9 % (Better) Range: 42.0-53.0 MCV 99.4 fL (Above high threshold) Range: 80.0-99.0 MCH 33.1 pg (Above high threshold) Range: 27.3-32.5 MCHC 33.3 % (Better) Range: 32.0-36.0 RDW 13.2 % (Better) Range: 11.6-14.8 PLATELETS 240 K/uL (Better) Range: 150-400 MPV 8.4 fL (Better) Range: 6.0-11.0 %NEUTRO 71.4 % (Better) Range: 37.0-80.0 %LYMPHS 14.4 % (Better) Range: 13.0-50.0 %MONO 6.3 % (Better) Range: 0.0-12.0 %EOS 3.4 % (Better) Range: 0.0-7.0 %BASO 0.4 % (Better) Range: 0.0-2.5 %AMISH 4.1 % (Better) Range: 0.0-5.0 NEUTRO 5.5 K/uL (Better) Range: 2.0-6.9 LYMPHS 1.1 K/uL (Better) Range: 0.6-3.4 MONOS 0.5 K/uL (Better) Range: 0.0-0.9 EOS 0.3 K/uL (Better) Range: 0.0-0.7 BASO 0.0 K/uL (Better) Range: 0.0-0.2 11:32 ERYTHROCYTE SED RATE 7800 ERYTHROCYTE SED RATE 16 mm/60 min. (Above high threshold) Range: 0-15 Plan of Care Planned Observations* Name Dates Details Planned Goals not documented Goal Planned Encounters* Appointment; Provider: Schedule Radiology On 19-Feb-2015 13:00 Instructions * Instructions not documented Encounters Appointment; Lizette Bell Encounter Diagnosis: Problem not documented On 07-Nov-2015 10:00 Appointment; Ian Vences Encounter Diagnosis: Problem not documented On 09:00 Appointment; Corey Bright Encounter Diagnosis: Problem not documented On 30-Jan-2015 11:00 Appointment; Agustín Major Encounter Diagnosis: Problem not documented On 16-Jan-2015 13:45 Appointment; Ian Vences Encounter Diagnosis: Problem not documented On 08-Jan-2015 09:00 Appointment; Kennedi Shafer Encounter Diagnosis: Problem not documented On 31-May-2014 08:30
--- OUTSIDE RECORDS SUMMARY | 2017-01-13 08:53 | XMS REPORT | Summary of Care ---
Author Author Agustín Major D.O. Organization Unknown Address [address] [place] [address], [place] [id number] Phone Unavailable Care Team Providers Care Digitizer Name Role Phone Agustín Major D.O. Unavailable [...] Active Lumbar radiculopathy (724.4, M54.16) Status: Active Frequency of urination (788.41, R35.0) Status: Active Ataxic gait (781.2, R26.0) Status: Active Peripheral neuropathy (356.9, G62.9) Status: Active Neck pain (723.1, M54.2) Status: Active Benign prostatic hypertrophy with urinary obstruction (600.01, N40.1) Status: Active Spinal stenosis (724.00, M48.00) Status: Active Nodular prostate without urinary obstruction (600.10, N40.2) Status: Active Incomplete bladder emptying (788.21, R33.9) Status: Active Pre-operative exam (V72.84, Z01.818) Status: Active Medications Name Dates Details Ibuprofen [...] of Hernia Repair History of Plantar Fasciectomy ECG/ EKG Preop Ordered: 06-Jan-2017 XRay CHEST-PA & LAT Ordered: 06-Jan-2017 Immunization Name Dates Details Influenza on: 31-May-2012 [...] smoker Vital Signs Date Test Result Details No Known Vitals to report Results Date Description Value Details 15-Dec-2016 08:24 [...] >60 ml/min Range: >60 EST GFR, NON-AFR FIJIAN >60 ml/min Range: >60 Comments: EST GFR [...] PROSTATE SPECIFIC ANTIGEN 0.510 ng/mL Range: 0.000-4.000 Plan of Care Name Dates Details Planned Observations Planned Goals not documented Planned Encounters Appointment; Provider: Valdez Manriquez M.D. On 13-Jan-2017 08:30 Appointment; Provider: Agustín Major D.O. On 07-Jan-2017 10:30 Instructions Name Dates Details Instructions not documented [...] not documented On 09:00 Appointment; Corey Bright M.D.,[facility], Encounter Diagnosis: Problem not documented On 30-Jan-2015 11:00 Appointment; Agustín Major D.O. Encounter Diagnosis: Problem not documented On 16-Jan-2015 13:45 Appointment; Ian Vences M.D. Encounter Diagnosis: Problem not documented On 08-Jan-2015 09:00
--- OUTSIDE RECORDS SUMMARY | 2017-01-13 08:53 | XMS REPORT | Summary of Care ---
Author Author Agustín Major D.O. Unknown Address [address] [place], [place] [phone] Phone Unavailable Care Team Providers Care State Editor Name Role Phone Kennedi Shafer D.O. Unavailable [...] M72.2) Status: Resolved Procedures Procedure Dates Details MRI LUMBAR SPINE Ordered:16-Jan-2015 Immunization Name Dates [...] 09:01 Urinalysis, reflex to Micro and Culture ([facility]) 8016 pH 6.0 (Better) Range: 5.0-7.5 SP [...] ml/min (Better) Range: >60 EST GFR, NON-AFR CUBAN >60 ml/min (Better) Range: >60 Comments: EST GFR is reported in ml/min per 1.73 m2 of body surface area. For -[place], please multiple result by 1.2.----- GLUCOSE 100 [...] 10Dictation Date: 08:38 XS RENAL SONO (Better) 16-Jan-2015 15:33 THYROID STIM. HORMONE 3602 THYROID STIM. HORMONE 1.122 uIU/mL (Better) Range: 0.550-4.780 Comments: \[id number]\No established reference ranges for infants and children < 2 years of ageNo established reference ranges for infants and children <2 years of age----- 15:40 FREE T4 3604 FREE T4 1.15 ng/dL (Better) Range: 0.80-1.67 15:40 VITAMIN B12 3606 VITAMIN B12 491 pg/mL (Better) Range: 211-911 Plan of Care Planned Observations* Name Dates [...]
--- OUTSIDE RECORDS SUMMARY | 2017-01-13 08:53 | XMS REPORT | Summary of Care ---
Author Author Ian Vences M.D. Unknown Address [address], [place] [id number] Phone Unavailable Care Team Providers Care Patient Accounts Coordinator Name Role Phone Kennedi Shafer D.O. Unavailable [...] with urinary obstruction (600.01, N40.1) Status: Active Medications Name Dates Details CeleBREX 200 MG Oral Capsule TAKE 1 CAPSULE TWICE DAILY NEEDED. Quantity: 60 Kennedi Shafer.[place].* Started 31-May-2014 Active Allergies and Adverse Reactions Name Dates Details Iodine Crystals Status: Active Past Medical History Name Dates Details History of Plantar fasciitis (728.71, M72.2) Status: Resolved Procedures Procedure Dates Details Comprehensive Metabolic Panel 1212 Ordered:08-Jan-2015 CBC w/ Auto Diff 7150 Ordered:08-Jan-2015 PSA ( PROSTATE SPECIFIC ANTIGEN) 3100 Ordered:08-Jan-2015 ULTRASOUND RENAL SONO Ordered:08-Jan-2015 Immunization Name Dates Details Influenza Administered on:31-May-2012 Influenza Administered on:01-Jul-2013 Social History Smoking Status* Unknown if ever smoked Vital Signs Date Test Result Details 08-Jan-2015 08:53 BP Systolic 130 mm[Hg] Status: [...] 09:01 Urinalysis, reflex to Micro and Culture ([facility]) 8016 pH 6.0 (Better) Range: 5.0-7.5 SP [...] Range: Negative LEUKOCYTES Negative (Better) Range: Negative Plan of Care Planned Observations* Name Dates Details Planned Goals not documented Goal Instructions * Instructions not documented Encounters Appointment; Ian Vences Encounter Diagnosis: Problem not documented On 08-Jan-2015 09:00 Appointment; Kennedi Shafer Encounter Diagnosis: Problem not documented On 31-May-2014 08:30
--- OUTSIDE RECORDS SUMMARY | 2017-01-13 08:53 | XMS REPORT | Summary of Care ---
Author Author Demetri BURGOS, Brittany Organization Unknown Address [address] [place], [place] [address] Phone Unavailable Care Team Providers Care Sales Market Leader Name Role Phone Kennedi Shafer D.O. Unavailable Unavailable Vangie Dickson, Ian Unavailable Unavailable [...] NEEDED. Quantity: 60 Kennedi Shafer.Benito.* Started 31-May-2014 ActiveTamsulosin HCl - 0.4 MG [...] History of Tonsillectomy History of Hernia Repair MRI LUMBAR SPINE Ordered:16-Jan-2015 Immunization Name Dates Details Influenza Administered on:31-May-2012 Influenza Administered on:01-Jul-2013 Family History Unknown Family Member* Name Dates Details Family history of diabetes mellitus (V18.0, Z83.3) Comments: Family History Status: Active Father* Name Dates Details Family history of leukemia (V16.6, Z80.6) Status: Active Social History Name Dates Details Smoking Status* Smoker. current status unknown Vital Signs Date Test Result Details 16-Jan-2015 [...] 09:01 Urinalysis, reflex to Micro and Culture ([facility]) 8016 pH 6.0 (Better) [...] ml/min (Better) Range: >60 EST GFR, NON-AFR [place] >60 ml/min (Better) Range: >60 Comments: EST GFR is reported in ml/min per 1.73 m2 of body surface area. For -Venezuelan, please multiple result by 1.2.----- GLUCOSE 100 [...] Planned Encounters* Appointment; Provider: Dio Couch On 13:15 * Appointment; Provider: Corey Bright On 30-Jan-2015 11:00 Instructions * Instructions not documented Encounters Appointment; Agustín Major Encounter Diagnosis: Problem not documented On 16-Jan-2015 13:45 Appointment; Ian Vences Encounter Diagnosis: Problem not documented On 08-Jan-2015 09:00 Appointment; Kennedi Shafer Encounter Diagnosis: Problem not documented On 31-May-2014 08:30
--- OUTSIDE RECORDS SUMMARY | 2017-01-13 08:53 | XMS REPORT ---
Author Author GENERATED, SYSTEM Organization Unknown Address Unknown Phone Unavailable Care Team Providers Care Customer Account Specialist Name Role Phone DO CHEEMA ALAN [phone] Reason For Visit Chief Complaint 788.41 Social History Functional Status Vital Signs Results [...]
--- OUTSIDE RECORDS SUMMARY | 2017-01-13 08:53 | XMS REPORT | Summary of Care ---
Author Author Valdez Manriquez M.D. Unknown Address [address] [place] [address] [place] [address] Phone Unavailable Care Team Providers Care Line Assembler Name Role Phone Agustín Major D.O. Unavailable [...] with urinary obstruction (600.01, N40.1) Status: Active Incomplete bladder emptying (788.21, R33.9) Status: Active Spinal stenosis (724.00, M48.00) Status: Active Medications Name Dates Details Ibuprofen [...] NEGATIVE Range: Negative LEUK NEGATIVE Range: Negative 15-Dec-2016 08:24 CBC w/ Auto Diff 7150 [...] >60 ml/min Range: >60 EST GFR, NON-AFR TOGOLESE >60 ml/min Range: >60 Comments: EST GFR [...] Encounters Appointment; Provider: Valdez Manriquez M.D. On 29-Dec-2016 12:30 Instructions Name Dates Details Instructions not documented [...] not documented On 09:00 Appointment; Corey Bright M.D.,[facility], Encounter Diagnosis: Problem not documented On 30-Jan-2015 11:00 Appointment; Agustín Major D.O. Encounter Diagnosis: Problem not documented On 16-Jan-2015 13:45 Appointment; Ian Vences M.D. Encounter Diagnosis: Problem not documented On 08-Jan-2015 09:00
--- OUTSIDE RECORDS SUMMARY | 2017-01-13 08:53 | XMS REPORT | Summary of Care ---
Author Author Valdez Manriquez M.D. Organization Unknown Address [address] [place] [address] [place] [address] Phone Unavailable Care Team Providers Care Software Qa Manager Name Role Phone Agustín Major D.O. Unavailable [...] of Hernia Repair History of Plantar Fasciectomy Comprehensive Metabolic Panel 1212 Ordered: 04-Dec-2016 PSA ( PROSTATE SPECIFIC ANTIGEN) 3100 Ordered: 04-Dec-2016 XRay SHOULDER-Right Ordered: 20-Oct-2016 XRay SHOULDER-Left Ordered: 20-Oct-2016 Immunization Name Dates Details Influenza [...] Manriquez M.D. On 15-Dec-2016 14:30 Interventions Provided Labs/Procedures/Imaging* Comprehensive Metabolic Panel 1212; To be Done: 04 Dec 2016 * PSA ( PROSTATE SPECIFIC ANTIGEN) 3100; To be Done: 04 Dec 2016 Instructions Name Dates Details Instructions not [...] not documented On 09:00 Appointment; Corey Bright M.D.,[facility], Encounter Diagnosis: Problem not documented On 30-Jan-2015 11:00 Appointment; Agustín Major D.O. Encounter Diagnosis: Problem not documented On 16-Jan-2015 13:45 Appointment; Ian Vences M.D. Encounter Diagnosis: Problem not documented On 08-Jan-2015 09:00
--- OUTSIDE RECORDS SUMMARY | 2017-01-13 08:54 | XMS REPORT | Summary of Care ---
Author Author Agustín Major D.O. Unknown Address [address] [place], [place] [id number] Phone Unavailable Care Team Providers Care Program Consultant Name Role Phone Kennedi Shafer D.O. Unavailable [...] R35.0) Status: Active Medications Name Dates Details CeleBREX [...] unknown Vital Signs Date Test Result Details 30-Jan-2015 10:49 BP Systolic 132 mm[Hg] Status: BP Diastolic 80 mm[Hg] Status: Results Date Description Value Details 30-Jan-2015 15:03 CYTOLOGY - URINE 4444 CYTOLOGY Specimen referred to Hematite Pathology. Report to follow. (Better) 01-Feb-2015 08:20 URINE CULTURE 5010 *URINE CULTURE Microbiology results (Better) Comments: URINE SOURCE: Clean CatchCOLONY COUNTNo Growth----- 19-Feb-2015 14:04 MRI LUMBAR SPINE Comments: Exam Date: 02/19/2015 12: 21Dictation Date: 02/19/2015 14:04 XMR SPINE LUMBAR (Better) Plan of Care Planned Observations* Name Dates Details Planned Goals not documented Goal Planned Encounters* Appointment; Provider: Dio Couch On 13:15 * Appointment; Provider: Corey Bright On 09:30 * Appointment; Provider: Schedule Radiology On 19-Feb-2015 13:00 Instructions * Instructions not documented Encounters Appointment; Corey Bright Encounter Diagnosis: Problem not documented On 30-Jan-2015 11:00 Appointment; Agustín Major Encounter Diagnosis: Problem not documented On 16-Jan-2015 13:45 Appointment; Ian Vences Encounter Diagnosis: Problem not documented On 08-Jan-2015 09:00 Appointment; Kennedi Shafer Encounter Diagnosis: Problem not documented On 31-May-2014 08:30
--- OUTSIDE RECORDS SUMMARY | 2017-01-13 08:54 | XMS REPORT | Summary of Care ---
Author Author Provider, Outside Organization Unknown Address Unknown Phone Unavailable Care Team Providers Care Data Warehouse Architect Name Role Phone Agustín Major Unavailable Unavailable [...] Dry skin dermatitis (692.89, L85.3) Status: Active Active smoker (305.1, F17.200) Status: Active Medications Name Dates Details Aspirin [...] ANTINUCLEAR ANTIBODIES 3902 Ordered: 30-Sep-2016 Immunofixation, Serum 604214 Ordered: 30-Sep-2016 Protein Elec + Interp, Serum 100805 Ordered: 30-Sep-2016 MRI LUMBAR SPINE Ordered: 30-Sep-2016 [...] >60 ml/min Range: >60 EST GFR, NON-AFR CA[place] ISLANDER >60 ml/min Range: >60 Comments: EST GFR [...] SED RATE 7 mm/60 min. Range: 0-15 01-Oct-2016 10:51 MCGRAW FibroSure [id number] Height: 74 inch Range: 0 Plan of Care Name Dates Details Planned Observations Planned Goals not documented Planned Encounters Appointment; Provider: Agustín Major D.O. On 20-Oct-2016 13:15 Appointment; Provider: Schedule Radiology On 07-Oct-2016 14:00 Appointment; Provider: Dio Couch M.D. On 30-Sep-2016 10:30 Appointment; Provider: Schedule Radiology On 25-Sep-2016 09:45 Appointment; Provider: Schedule Radiology On 25-Sep-2016 09:00 Appointment; Provider: Schedule Radiology On 25-Sep-2016 08:30 Appointment; Provider: Schedule Radiology On 19-Feb-2015 13:00 Instructions Name Dates Details Instructions not documented [...] not documented On 09:00 Appointment; Corey Bright M.D.|Eric|Randolph,WILFREDO,ASHLEY, Encounter Diagnosis: Problem not documented On 30-Jan-2015 11:00 Appointment; Agustín Major D.O. Encounter Diagnosis: Problem not documented On 16-Jan-2015 13:45 Appointment; Ian Vences M.D. Encounter Diagnosis: Problem not documented On 08-Jan-2015 09:00"
--- OUTSIDE RECORDS SUMMARY | 2017-01-13 08:54 | XMS REPORT | Summary of Care ---
Author Author Valdez Manriquez M.D. Organization Unknown Address [address] [place] [address] [place] [address] Phone Unavailable Care Team Providers Care Tax Services Manager Name Role Phone Agustín Major D.O. [...] Incomplete bladder emptying (788.21, R33.9) Status: Active Medications Name Dates Details Ibuprofen [...] >60 ml/min Range: >60 EST GFR, NON-AFR [place] LEONEAN >60 ml/min Range: >60 Comments: EST GFR [...] not documented On 09:00 Appointment; Corey Bright M.D.,[facility], Encounter Diagnosis: Problem not documented On 30-Jan-2015 11:00 Appointment; Agustín Major D.O. Encounter Diagnosis: Problem not documented On 16-Jan-2015 13:45 Appointment; Ian Vences M.D. Encounter Diagnosis: Problem not documented On 08-Jan-2015 09:00
--- OUTSIDE RECORDS SUMMARY | 2017-01-13 08:54 | XMS REPORT | Summary of Care ---
Author Author Kaila Dickson, ASHLEY, ,Corey Organization Unknown Address [address] [place], [place] [phone] Phone Unavailable Care Team Providers Care Manager Medical Affairs Name Role Phone Kennedi Shafer D.O. Unavailable [...] NEEDED. Quantity: 60 Kennedi Shafer.O.* Started 31-May-2014 ActiveTamsulosin HCl - 0.4 MG [...] of Hernia Repair History of Plantar Fasciectomy URINE CULTURE 5010 Ordered:30-Jan-2015 MRI LUMBAR SPINE Ordered:16-Jan-2015 Immunization Name Dates [...] mm[Hg] Status: BP Diastolic 80 mm[Hg] Status: 16-Jan-2015 13:46 BP Systolic 142 mm[Hg] Status: [...] 09:01 Urinalysis, reflex to Micro and Culture ([facility]) 8016 pH 6.0 (Better) Range: [...] ml/min (Better) Range: >60 EST GFR, NON-AFR GREENLANDIC >60 ml/min (Better) Range: >60 Comments: EST GFR is reported in ml/min per 1.73 m2 of body surface area. For -Moroccan, please multiple result by 1.2.----- GLUCOSE 100 [...] VITAMIN B12 491 pg/mL (Better) Range: 211-911 30-Jan-2015 15:03 CYTOLOGY - URINE 4444 CYTOLOGY Specimen referred to [facility]. Report to follow. (Better) Plan of Care Planned Observations* Name Dates Details Planned Goals not documented Goal Planned Encounters* Appointment; Provider: Dio Couch On 13:15 Instructions * Instructions not documented Encounters Appointment; Corey Bright Encounter Diagnosis: Problem not documented On 30-Jan-2015 11:00 Appointment; Agustín Major Encounter Diagnosis: Problem not documented On 16-Jan-2015 13:45 Appointment; Ian Vences Encounter Diagnosis: Problem not documented On 08-Jan-2015 09:00 Appointment; Kennedi Shafer Encounter Diagnosis: Problem not documented On 31-May-2014 08:30
--- OUTSIDE RECORDS SUMMARY | 2017-01-13 08:54 | XMS REPORT | Summary of Care ---
Author Author Demetri BURGOS, Brittany Organization Unknown Address [address] [place], [place] [id number] Phone Unavailable Care Team Providers Care Macroeconomics Professor Name Role Phone Kennedi Shafer D.O. Unavailable [...] CAPSULE TWICE DAILY NEEDED. Quantity: 60 Kennedi Shafer.Lindsey* Started 31-May-2014 ActiveTamsulosin HCl - 0.4 MG [...] of Hernia Repair History of Plantar Fasciectomy MRI LUMBAR SPINE Ordered:16-Jan-2015 Immunization Name Dates [...] 09:01 Urinalysis, reflex to Micro and Culture ([facility]) 8016 pH 6.0 (Better) [...] ml/min (Better) Range: >60 EST GFR, NON-AFR EMIRATI >60 ml/min (Better) Range: >60 Comments: EST GFR is reported in ml/min per 1.73 m2 of body surface area. For -Congolese, please multiple result by 1.2.----- GLUCOSE 100 [...]
--- OUTSIDE RECORDS SUMMARY | 2017-01-13 08:54 | XMS REPORT | Summary of Care ---
Author Author Agustín Major D.O. Organization Unknown Address [address] [place], [place] [phone] Phone Unavailable Care Team Providers Care Tool Machinist Name Role Phone Agustín Major D.O. Unavailable [...] Encounters Appointment; Provider: Valdez Manriquez M.D. On 27-Nov-2016 15:15 Instructions Name Dates Details Instructions not documented [...] documented On 09:00 Appointment; Corey Bright M.D.,[facility], Encounter Diagnosis: Problem not documented On 30-Jan-2015 11:00 Appointment; Agustín Major D.O. Encounter Diagnosis: Problem not documented On 16-Jan-2015 13:45 Appointment; Ian Vences M.D. Encounter Diagnosis: Problem not documented On 08-Jan-2015 09:00
--- OUTSIDE RECORDS SUMMARY | 2017-01-13 08:54 | XMS REPORT ---
Author Author GENERATED, SYSTEM Organization Unknown Address Unknown Phone Unavailable Care Team Providers Care Line Haul Owner Operator Name Role Phone DO CHEEMA ALAN [phone] Reason For Visit Chief Complaint 788.41 Social [...]
--- OUTSIDE RECORDS SUMMARY | 2017-01-13 08:55 | XMS REPORT | Summary of Care ---
Author Author Ian Vences M.D. Organization Unknown Address [address], [place] [phone] Phone Unavailable Care Team Providers Care Die Mounter Name Role Phone Kennedi Shafer D.O. Unavailable [...] 97.9 f Status: Weight 206 lb Status: O2 SAT 97 % Status: Body [...]
--- OUTSIDE RECORDS SUMMARY | 2017-01-13 08:55 | XMS REPORT | Summary of Care ---
Demographics Preferred Language Tanzanian Marital Status Unknown Tenriism Affiliation Unknown Race Other Race Ethnic Group Unknown Author Author Agustín Major D.O. Organization Unknown Address [address] [place], [place] [id number] Phone Unavailable Care Team Providers Care Senior Bioinformatics Scientist Name Role Phone Agustín Major D.O. Unavailable [...] Plantar Fasciectomy Comprehensive Metabolic Panel 1212 Ordered: 08-Sep-2016 CBC w/ Auto Diff 7150 Ordered: 08-Sep-2016 FREE T4 3604 Ordered: 08-Sep-2016 THYROID STIM. HORMONE 3602 Ordered: 08-Sep-2016 VITAMIN B12 3606 Ordered: 08-Sep-2016 Immunization Name Dates Details Influenza on: 31-May-2012 [...] Details Results not documented Plan of Care Name Dates Details Planned Observations Planned Goals not documented Interventions Provided Labs/Procedures/Imaging* CBC w/ Auto Diff 7150; To be Done: 08 Sep 2016 * Comprehensive Metabolic Panel 1212; To be Done: 08 Sep 2016 * FREE T4 3604; To be Done: 08 Sep 2016 * THYROID STIM. HORMONE 3602; To be Done: 08 Sep 2016 * VITAMIN B12 3606; To be Done: 08 Sep 2016 Instructions Name Dates Details Instructions not documented Encounters Appointment; Lizette Bell A.P.R.N. Encounter Diagnosis: Problem not documented On 07-Nov-2015 10:00 Appointment; Ian Vences M.D. Encounter Diagnosis: Problem not documented On 09:00 Appointment; Corey Bright M.D.|Erci|ASHLEY Dickson|Randolph,ASHLEY, Encounter Diagnosis: Problem not documented On 30-Jan-2015 11:00 Appointment; Agustín Major D.O. Encounter Diagnosis: Problem not documented On 16-Jan-2015 13:45 Appointment; Ian Vences M.D. Encounter Diagnosis: Problem not documented On 08-Jan-2015 09:00"
--- OUTSIDE RECORDS SUMMARY | 2017-01-13 08:55 | XMS REPORT | Summary of Care ---
Author Author Dio Couch M.D. Unknown Address Unknown Phone Unavailable Care Team Providers Care Home Energy Consultant Name Role Phone Rosalee Couch M.D. Unavailable Unavailable Agustín Major [...] Active Peripheral neuropathy (356.9, G62.9) Status: Active Medications Name Dates Details Aspirin [...] of Hernia Repair History of Plantar Fasciectomy CREATINE KINASE 1300 Ordered: 30-Sep-2016 ANTINUCLEAR ANTIBODIES 3902 Ordered: 30-Sep-2016 ERYTHROCYTE SED RATE 7800 Ordered: 30-Sep-2016 Immunofixation, Serum 802349 Ordered: 30-Sep-2016 Protein Elec + Interp, Serum 178366 Ordered: 30-Sep-2016 MRI LUMBAR SPINE Ordered: 30-Sep-2016 [...] smoker Vital Signs Date Test Result Details 30-Sep-2016 09:25 BP Systolic 120 mm[Hg] Status: [...] >60 ml/min Range: >60 EST GFR, NON-AFR KENYAN >60 ml/min Range: >60 Comments: EST GFR [...] of Care Name Dates Details Planned Observations MRI LUMBAR SPINE On 14-Oct-2016 Intent Planned Goals not documented Planned Encounters Appointment; Provider: Dio Couch M.D. On 05-Nov-2016 14:15 Appointment; Provider: Agustín Major D.O. On 20-Oct-2016 13:15 Appointment; Provider: Agustín Major D.O. On 01-Oct-2016 09:00 Appointment; Provider: Dio Couch M.D. On 30-Sep-2016 10:30 Interventions Provided Labs/Procedures/Imaging* ANTINUCLEAR ANTIBODIES 3902; To be Done: 30 Sep 2016 * CREATINE KINASE 1300; To be Done: 30 Sep 2016 * ERYTHROCYTE SED RATE 7800; To be Done: 30 Sep 2016 * Immunofixation, Serum 708786; To be Done: 30 Sep 2016 * Protein Elec + Interp, Serum 759212; To be Done: 30 Sep 2016 Instructions Name Dates Details Instructions [...]
--- OUTSIDE RECORDS SUMMARY | 2017-01-13 08:55 | XMS REPORT | Summary of Care ---
Author Author Valdez Manriquez M.D. Organization Unknown Address [address] [place] [address] [place] [address] Phone Unavailable Care Team Providers Care Solidworks Mechanical Designer Name Role Phone Agustín Major D.O. Unavailable Unavailable Valdez Manriquez M.D. Unavailable Unavailable Agustín [...] of Hernia Repair History of Plantar Fasciectomy PSA ( PROSTATE SPECIFIC ANTIGEN) 3100 Ordered: [...] not documented On 09:00 Appointment; Corey Bright M.D.,[facility], Encounter Diagnosis: Problem not documented On 30-Jan-2015 11:00 Appointment; Agustín Major D.O. Encounter Diagnosis: Problem not documented On 16-Jan-2015 13:45 Appointment; Ian Vences M.D. Encounter Diagnosis: Problem not documented On 08-Jan-2015 09:00
--- OUTSIDE RECORDS SUMMARY | 2017-01-13 08:55 | XMS REPORT | Summary of Care ---
Author Author Agustín Major D.O. Organization Unknown Address [address] [place], [place] [phone] Phone Unavailable Care Team Providers Care Diabetes Nurse Name Role Phone Agustín Major D.O. Unavailable [...] of shoulder, right (726.10, M75.81) Status: Active Medications Name Dates Details Aspirin [...] SHOULDER-Left Ordered: 20-Oct-2016 XRay SHOULDER-Right Ordered: 20-Oct-2016 ORTHO SPINE LUMBAR (5 VIEWS) Ordered: 15-Sep-2016 CT HEAD WITHOUT AND WITH IV CONTRAST Ordered: 17-Sep-2016 CT HEAD WITHOUT AND WITH IV CONTRAST Ordered: 12-Sep-2016 Immunization Name Dates Details Influenza on: 31-May-2012 [...] smoker Vital Signs Date Test Result Details 20-Oct-2016 12:54 BP Systolic 118 mm[Hg] Status: Comments: Location: ; Position: BP Diastolic 66 mm[Hg] Status: Comments: Location: ; Position: Heart Rate 62 /min Status: Comments: Location: ; Weight 204 lb Status: Physical Findings 95 Status: Comments: O2 Saturation Body Mass Index Calculated 26.19 kg/m2 Status: Body Surface Area Calculated 2.19 m2 Status: 01-Oct-2016 08:51 Temperature 98.5 f Status: Heart [...] 22-Sep-2016 10:54 BP Systolic 132 mm[Hg] Status: BP Diastolic 72 mm[Hg] Status: Heart Rate 70 /min Status: Comments: Location: ; Weight 205 lb Status: Body Mass Index Calculated 26.32 kg/m2 Status: Body Surface Area Calculated 2.2 m2 Status: Results Date Description Value Details 25-Sep-2016 08:28 CT HEAD WITHOUT IV CONTRAST [...] min. Range: 0-15 01-Oct-2016 10:51 MCGRAW FibroSure 682130 Height: 74 inch Range: 0 14:35 ANTINUCLEAR ANTIBODIES 3902 ANTINUCLEAR ANTIBODIES 25 AU/mL Range: 0-120 Comments: REFERENCE VALUE INTERPRETATION 0-99 U/mL - NEGATIVE 100 - 120 U/mL - EQUIVOCAL >120 U/mL - POSITIVE--- -- 02-Oct-2016 07:37 Immunofixation, Serum [id number] Comments: Testing performed at: [DA] [facility], [address] [place] [address], [address], , Forge Shop Supervisor: OPAL Hanna MD IMMUNOFIXATION RESULT, SERUM Comment Comments: An apparent normal immunofixation pattern.----- IMMUNOGLOBULIN G, QN, SERUM 699 mg/dL (Below low threshold) Range: 700- 1600 IMMUNOGLOBULIN A, QN, SERUM 224 mg/dL Range: 61-437 IMMUNOGLOBULIN M, QN, SERUM 118 mg/dL Range: 20-172 07:37 Protein Elec + Interp, Serum [id number] Comments: Testing performed at: [ DA] [facility], [address] [place] [address], [place], [address], , [employer]ge Shop Supervisor: OPAL Hanna MD PROTEIN, TOTAL, SERUM 6.9 g/dL Range: 6.0-8.5 ALBUMIN 4.4 g/dL Range: 2.9-4.4 ZGBPI-9-BJNQFAPI 0.2 g/dL Range: 0.0-0.4 RJTUR-3-GQWAKTWR 0.6 g/dL Range: 0.4-1.0 BETA GLOBULIN 1.0 g/dL Range: 0.7-1.3 GAMMA GLOBULIN 0.8 g/dL Range: 0.4-1.8 M-SPIKE Not Observed g/dL Range: Not Observed GLOBULIN, TOTAL 2.5 g/dL Range: 2.2-3.9 A/G RATIO 1.8 (Above high threshold) Range: 0.7-1.7 PLEASE NOTE: Comment Comments: Protein electrophoresis scan will follow via computer,mail, or glassware selector delivery.----- P E INTERPRETATION, S Comment Comments: [...] Encounters Appointment; Provider: Agustín Major D.O. On 31-Oct-2016 09:00 Instructions Name Dates Details Instructions not [...] not documented On 09:00 Appointment; Corey Bright M.D.|[employer]|Randolph,ASHLEY|Randolph,ASHLEY, Encounter Diagnosis: Problem not documented On 30-Jan-2015 11:00 Appointment; Major, Agustín, D.O. Encounter Diagnosis: Problem not documented On 16-Jan-2015 13:45 Appointment; Ian Vences M.D. Encounter Diagnosis: Problem not documented On 08-Jan-2015 09:00"
--- OUTSIDE RECORDS SUMMARY | 2017-01-13 08:55 | XMS REPORT | Summary of Care ---
Author Author Agustín Major D.O. Organization Unknown Address [address] [place], [place] [phone] Phone Unavailable Care Team Providers Care Tailings Worker Name Role Phone Agustín Major D.O. Unavailable [...] >60 ml/min Range: >60 EST GFR, NON-AFR VINCENTIAN >60 ml/min Range: >60 Comments: EST GFR [...] differential indicated.DOS: 01/13/2017 DR: Dr Manriquez PLACE: [facility] WBC 7.0 K/uL Range: 4.5-11.0 RBC 3.88 [...] PANEL 7000 Comments: DOS: 01/13/2017 DR: Dr Manriquez PLACE: [facility] PROTIME 12.7 secs Range: 12.0-14.9 INR 0.99 15:15 PTT 7500 Comments: DOS: 01/13/[address]: [facility] PTT 29.8 secs Range: 23.0-34.7 15:32 Comprehensive Metabolic Panel 1212 Comments: DOS: 01/13/[address]: [facility] SODIUM 137 mmol/L Range: 133-144 POTASSIUM 4.2 mmol/L Range: 3.5-5.1 CHLORIDE 104 mmol/L Range: 98-110 CARBON DIOXIDE 25.0 mmol/L Range: 23.0-33.0 ANION GAP 8 mmol/L Range: 6-16 BUN 15 mg/dL Range: 7-18 CREATININE, SERUM 1.01 mg/dL Range: 0.70-1.30 BUN:CREATININE RATIO 15 EST GFR, >60 ml/min Range: >60 EST GFR, NON-AFR VINCENTIAN >60 ml/min Range: >60 Comments: EST GFR [...] not documented On 09:00 Appointment; Corey Bright M.D.,[facility], Encounter Diagnosis: Problem not documented On 30-Jan-2015 11:00 Appointment; Agustín Major D.O. Encounter Diagnosis: Problem not documented On 16-Jan-2015 13:45 Appointment; Ian Vences M.D. Encounter Diagnosis: Problem not documented On 08-Jan-2015 09:00
--- OUTSIDE RECORDS SUMMARY | 2017-01-13 08:55 | XMS REPORT | Summary of Care ---
Author Author Agustín Major D.O. Organization Unknown Address [address], [place] [id number] Phone Unavailable Care Team Providers Care Skein Yarn Drier Name Role Phone Agustín Major D.O. Unavailable [...] WITHOUT AND WITH IV CONTRAST Ordered: 12-Sep-2016 XRay SHOULDER-Left Ordered: 20-Oct-2016 XRay SHOULDER-Right Ordered: 20-Oct-2016 CT HEAD WITHOUT AND WITH IV CONTRAST [...] min. Range: 0-15 01-Oct-2016 10:51 MCGRAW FibroSure [id number] Height: 74 inch Range: 0 14:35 ANTINUCLEAR ANTIBODIES 3902 ANTINUCLEAR ANTIBODIES 25 AU/mL Range: 0-120 Comments: REFERENCE VALUE INTERPRETATION 0-99 U/mL - NEGATIVE 100 - 120 U/mL - EQUIVOCAL >120 U/mL - POSITIVE--- -- 02-Oct-2016 07:37 Immunofixation, Serum [id number] Comments: [facility] performed at: [facility] [address] [place] [address], [phone], , Oncology Physician: OPAL Hanna MD IMMUNOFIXATION RESULT, SERUM Comment Comments: An apparent normal immunofixation pattern.----- IMMUNOGLOBULIN G, QN, SERUM 699 mg/dL (Below low threshold) Range: 700- 1600 IMMUNOGLOBULIN A, QN, SERUM 224 mg/dL Range: 61-437 IMMUNOGLOBULIN M, QN, SERUM 118 mg/dL Range: 20-172 07:37 Protein Elec + Interp, Serum [id number] Comments: Testing performed at: [ DA] [facility], [address] [place] [address], [place], [address], , Oncology Physician: OPAL Hanna MD PROTEIN, TOTAL, SERUM 6.9 g/dL Range: 6.0-8.5 ALBUMIN 4.4 g/dL Range: 2.9-4.4 UROKR-5-[id number] 0.2 g/dL Range: 0.0-0.4 ZQMMR-3-RWDNGGWV 0.6 g/dL Range: 0.4-1.0 BETA GLOBULIN 1.0 g/dL Range: 0.7-1.3 GAMMA GLOBULIN 0.8 g/dL Range: 0.4-1.8 M-SPIKE Not Observed g/dL Range: Not Observed GLOBULIN, TOTAL 2.5 g/dL Range: 2.2-3.9 A/G RATIO 1.8 (Above high threshold) Range: 0.7-1.7 PLEASE NOTE: Comment Comments: Protein electrophoresis scan will follow via computer,mail, or high climber delivery.----- P E INTERPRETATION, S Comment Comments: The SPE pattern appears essentially unremarkable. Evidenceof monoclonal protein is not apparent.----- 07-Oct-2016 15:20 MRI LUMBAR SPINE Comments: Exam Date: 10/07/2016 13: 02Dictation Date: 10/07/2016 15:20 XMR SPINE LUMBAR Plan of Care Name Dates Details Planned Observations Planned Goals not documented Interventions Provided Medication Changes* Meloxicam 7.5 MG Oral Tablet - Start Labs/Procedures/Imaging* XRay SHOULDER-Left; To be Done: 20 Oct 2016 * XRay SHOULDER-Right; To be Done: 20 Oct 2016 Instructions Name Dates Details Instructions not documented Encounters Appointment; Agutsín Major D.O. Encounter Diagnosis: Problem not documented [...] not documented On 09:00 Appointment; Corey Bright M.D.|Tony,ASHLEY|Randolph,ASHLEY, Encounter Diagnosis: Problem not documented On 30-Jan-2015 11:00 Appointment; Agustín Major D.O. Encounter Diagnosis: Problem not documented On 16-Jan-2015 13:45 Appointment; Ian Vences M.D. Encounter Diagnosis: Problem not documented On 08-Jan-2015 09:00"
[2017-01-13 09:25] LABS: BASOPHILS # (AUTO) 0.1 T/MM3 (0-0.2); BASOPHILS % (AUTO) 0.7 % (0-2); EOSINOPHILS # (AUTO) 0.4 T/MM3 (0-0.5); EOSINOPHILS % (AUTO) 4.8 % (0-4); HGB - HEMOGLOBIN 13.5 GM/DL (13.5-17.5); IMMATURE GRANULOCYTE # (AUTO) 0.05 T/MM3 (0.00-0.03); IMMATURE GRANULOCYTE % (AUTO) 0.6 % (0.0-0.5); LYMPHOCYTES # (AUTO) 2.6 T/MM3 (1-4.8); LYMPHOCYTES % (AUTO) 29.4 % (23-45); MEAN CORPUSCULAR HGB 31.8 UUG (26-34); MEAN CORPUSCULAR HGB CONC(MCHC 32.9 GM/DL (31-37); MEAN CORPUSCULAR VOLUME 96.5 UM3 (80-100); MONOCYTES # (AUTO) 0.5 T/MM3 (0-0.8); MONOCYTES % (AUTO) 6.1 % (0-9.0); NEUTROPHILS #(AUTO)-ABSOLUTE 5.1 T/MM3 (1.8-7.7); NEUTROPHILS % (AUTO) 58.4 % (33-66); RED BLOOD COUNT 4.25 M/MM3 (4.50-5.90); WBC - WHITE BLOOD COUNT 8.7 T/MM3 (4.5-11.0)
[2017-01-13 09:33] LABS: INR 1.05 (0.76-1.04); PROTHROMBIN TIME 11.4 SEC (9.31-12.49); PTT 30.8 SEC (24-36)
[2017-01-13 09:35] LABS: ALBUMIN 4.5 G/DL (3.5-5.0); ALBUMIN/GLOBULIN RATIO 1.4 RATIO (1.1-2.2); ALKALINE PHOSPHATASE 71 U/L (38-126); ALT (SGPT) 42 U/L (21-72); ANION GAP 14 MEQ/L (5-15); AST (SGOT) 29 U/L (17-59); BUN/CREATININE RATIO 14 RATIO (6-26); CALCIUM 9.5 MG/DL (8.4-10.2); CHLORIDE 108 MEQ/L (98-107); CO2 - CARBON DIOXIDE 24 MEQ/L (22-30); CREATININE 0.9 MG/DL (0.8-1.5); GLOMERULAR FILTRATION RATE 86; GLUCOSE 96 MG/DL (75-110); POTASSIUM 4.2 MEQ/L (3.6-5); SODIUM 146 MEQ/L (134-144); TOTAL PROTEIN 7.8 G/DL (6.3-8.2)
[2017-01-13] MEDS: LR 1,000 ML IV SCH ×2 (09:49→14:04)
--- NOTE | 2017-01-13 11:15 | ANESPREOP ---
Anesthesia Record Date and Time DATE: 01/13/17 TIME: 11:12 Pre-Op Diagnosis bph Proposed Surgical Procedure TURP Allergies: Coded Allergies: Iodine and Iodide Containing Produc (Verified Allergy, Unknown, 01/13/17) NURSE REPORTS UNKNOWN REACTION Ht/Wt/BMI Height: 6 ' 3.00 " Weight: 97.800 kg BMI: 27.0 kg/m2 Vital Signs Date Time Temp Pulse Resp B/P Pulse Ox O2 Delivery O2 Flow Rate FiO2 01/13/17 09:06 97.7 87 14 135/81 Room Air Medications Inpatient Medications Current Medications Medications (Trade) Dose Ordered Sig/Emily Start Time Stop Time Status Last Admin Dose Admin Lactated Ringer's (Lactated Ringers) 1,000 ml @ 30 mls/hr Q24H 01/13/17 07:00 01/13/17 09:49 30 MLS/HR Acetaminophen (Tylenol Extra Strength) 500 Mg Tablet, 1 TAB PO BID PRN for PAIN/ FEVER, (Reported) Last Taken: on 01/13/17 0600 Acetaminophen (Tylenol) 325 Mg Tablet, 2 TAB PO Q4HPRN, (Reported) Last Taken: on 01/13/17 0600 Acetaminophen (Tylenol Extra Strength) 500 Mg Tablet, 1-2 TAB PO Q6H PRN for PAIN/FEVER, (Reported) Last Taken: on 01/13/17 0600 Bisacodyl (Bisacodyl) 10 Mg Supp.rect, 1 SUPP RECTALLY DAILY PRN for CONSTIPATION, (Reported) Last Taken: on Unknown Date & Time Cetirizine HCl (Zyrtec) 10 Mg Tablet, 1 TAB PO DAILY, (Reported) Last Taken: on 01/12/17 0900 Diphenhydramine HCl (Benadryl) 25 Mg Capsule, 1 CAP PO DAILY PRN for ITCHING, (Reported) Last Taken: on Unknown Date & Time Gabapentin (Gabapentin) 300 Mg Capsule, 2 CAP PO TID, (Reported) Last Taken: on 01/12/171999 Magnesium Hydroxide (Milk of Magnesia) 400 Mg/5 Ml Oral.susp, 30 ML PO DAILY PRN for CONSTIPATION, (Reported) Last Taken: on Unknown Date & Time Meloxicam (Meloxicam) 7.5 Mg Tablet, 1 TAB PO DAILY, (Reported) Last Taken: on 01/09/17 Multivitamin (Multi-Day Vitamins) 1 Each Tablet, 1 TAB PO DAILY, (Reported) Last Taken: on 01/12/17 0800 Naproxen Sodium (Naproxen Sodium) 550 Mg Tablet , 1 TAB PO BID, (Reported) Last Taken: on 01/09/17 Tamsulosin HCl (Tamsulosin HCl) 0.4 Mg Cap.er.24h, 1 CAP PO HS, (Reported) Last Taken: on 01/12/171999 Triamcinolone (Triamcinolone Acetonide) 15 Applic/15 G Cr, 1 APPLIC TOP BID PRN for RASH, (Reported) Last Taken: on Unknown Date & Time Currently on Beta Milagro: No Medical/Surgical History Anesthesia PMH: Denies: Sleep Apnea Smoking Status: Former smoker Has pt. smoked today?: No Use Chewing Tobacco?: No Second Hand Exposure: No Substance Use Type: does not use Alcohol Intake: none Last Drink: unknown Past Surgical History Orthopedic Surgeries: Yes - PLANTAR FASCIECTOMY Abdominal Surgeries: Yes - HERNIA REPAIR PER H&P Genitourinary Surgeries: Yes - CYSTOSCOPY Cardiac Surgeries: Endocrine Surgeries: Reproductive Surgeries: Neurological Surgeries: Ear Surgeries: Nose Surgeries: Throat Surgeries: Yes - TONSILLECTOMY Other Surgeries: Anesthesia Adverse Reactions: FOUND none Family Hx of Anesthesia Advers: none Hx of Motion Sickness: No Pertinent Findings Laboratory Tests 01/13/17 09:18 Test 01/13/17 09:18 Activated Partial Thromboplast Time 30.8SEC (24-36) Prothromb Time International Ratio 1.05 (0.76-1.04) EKG Rhythm: Sinus Rhythm Physical Exam Respiratory: Bilat breath sounds equal, Lungs clear Cardiovascular: FOUND Regular rate, rhythm, FOUND No murmur Airway Assessment Mallampati Score: II TMD: 3 Fingerbreadths Neck Extension: Good Overall Assessment: No Airway Concerns ASA: 2 Plan Anesthesia Plan: [facility]: Spinal Discussion Discussed risks/options/alternatives of anesthesia and questions answered. Patient consents. Nursing pain assessment noted. Attestation Statement Prior to the delivery of any anesthetic medication, I examined the patient, developed the plan, obtained the patient's consent and discussed the risk and benefits of the procedure with the patient/guardian. MICHAEL VALLE CRNA Jan 13, 2017 11:15
[2017-01-13] MEDS ORDERED: MIDAZOLAM 2mg/2ml INJECTION ONE ×3 (11:22→11:52)
[2017-01-13] MEDS ORDERED: FENTANYL 100mcg/2ml INJECTION ONE (11:27)
[2017-01-13] MEDS ORDERED: LEVOFLOXACIN 500 mg IVPB 500 MG in D5W 100 ML IV ONE (11:30)
[2017-01-13] MEDS ORDERED: ONDANSETRON 4mg/2ml INJECTION IV PRN (12:30)
[2017-01-13] MEDS ORDERED: DiphenhydrAMINE 25 MG CAPSULE PO PRN (12:30)
[2017-01-13] MEDS ORDERED: BELLADONNA-OPIUM 16.2-60mg SUPP RECTALLY PRN (12:30)
[2017-01-13] MEDS ORDERED: TRIAMCINOLONE 0.025% TOP PRN (12:30)
[2017-01-13] MEDS ORDERED: MILK OF MAGNESIA 30 ML SUSP PO PRN (12:30)
--- NOTE | 2017-01-13 13:05 | NUR ---
CARDIAC ARRYTHMIA NOTED, JC VALLE CRNA MADE AWARE OF THIS. aMrgarita VALLE IS CONSULTING WITH DR. BUCHANAN AT THIS TIME, AWAITING FURTHER ORDERS.
--- NOTE | 2017-01-13 13:11 | NUR ---
VERBAL ORDERS FOR 12 LEAD EKG, CMP AND TO CONSULT HOSPITALIST. ORDERS PLACED. DR PLATT ADVISED OF THIS CONSULT. LAB ALSO NOTIFIED. Addendum: 01/13/17 at 1351 by EMILEE JOHNSON RN DR BUCHANAN DOES REQUEST THAT THE PT STAY IN PACU UNTIL DR. PLATT HAS CONSULTED WITH THE PT.
--- NOTE | 2017-01-13 13:22 | ANESPO ---
Post-Op Note Date 01/13/17 Time: 13:21 Status Pt Participated in Evaluation: Pt participated in person Vital Signs Date Time Temp Pulse Resp B/P Pulse Ox O2 Delivery O2 Flow Rate FiO2 01/13/17 13:00 64 16 107/59 95 Room Air 01/13/17 12:31 97.6 Respiratory Function: Airway patent, Regular respirations Cardiovascular Function: Regular pulse Telemetry Pattern: Dr. Lazaro consulted Mental Status: Alert/oriented Pain Level Intensity: 0 Hydration: IV infusing Complications during Recovery None apparent Follow-Up Instructions Instructions Per Surgeon PEDRO GÓMEZ CRNA Jan 13, 2017 13:22
[2017-01-13 13:58] LABS: ALBUMIN 3.7 G/DL (3.5-5.0); ALBUMIN/GLOBULIN RATIO 1.4 RATIO (1.1-2.2); ALKALINE PHOSPHATASE 60 U/L (38-126); ALT (SGPT) 38 U/L (21-72); ANION GAP 9 MEQ/L (5-15); AST (SGOT) 24 U/L (17-59); BUN/CREATININE RATIO 15 RATIO (6-26); CALCIUM 8.9 MG/DL (8.4-10.2); CHLORIDE 111 MEQ/L (98-107); CO2 - CARBON DIOXIDE 24 MEQ/L (22-30); CREATININE 0.8 MG/DL (0.8-1.5); GLOMERULAR FILTRATION RATE 98; GLUCOSE 89 MG/DL (75-110); POTASSIUM 4.1 MEQ/L (3.6-5); SODIUM 144 MEQ/L (134-144); TOTAL PROTEIN 6.3 G/DL (6.3-8.2)
--- NOTE | 2017-01-13 14:20 | NUR ---
DR PLATT DIRECTOR OF TRAUMA CAME TO PACU FOR CONSULT. SHE GAVE VERBAL "OKAY"TO TRANSFER PT TO FLOOR AT THIS TIME.
--- NOTE | 2017-01-13 14:34 | NUR ---
ARRIVED PT ARRIVED TO ROOM 109 VIA CART AND MOVED HIMSELF TO THE BED WITH ASSIST X2 FROM STAFF. PT UNABLE TO MOVE HIPS AT THIS TIME. PT C/O SOME PAIN IN HIS NECK DURING THIS TIME. STAFF TO ASSESS. CBI IN PLACE AND DRAINING.
[2017-01-13] MEDS: NORMAL SALINE 1,000 ML IV SCH (14:36)
--- NOTE | 2017-01-13 14:43 | CONSPD ---
YOSHI COHN Genaro EDGER [employer]OM[employer]IC 01/13/17 1433: Consultation Info Date DATE: 01/13/17 TIME: 14:29 Date of Consultation: Jan 13, 2017 Attending Physician: Dr. Manriquez Reason for Consultation: postop arrhythmias HPI - Adult Date DATE: 01/13/17 TIME: 14:29 General Chief Complaint: postop arrhythmias History of Present Illness Gunner Kinsey is a 61-year-old male seen in consultation from Dr. Manriquez for postop arrhythmias. Per the PACU nurse, he began having frequent PACs and PVCs, but underlying rhythm was sinus bradycardia. The patient denied any symptoms such as chest pain, palpitations or difficulty breathing. He was admitted on 01/13/17 for a planned TURP. He has been having urinary symptoms such as suprapubic pain and urinary frequency for quite some time. He reports that he has been in good health of late, no fevers or chills, cough or congestion, dysphagia, chest pain , shortness of breath, abdominal pain, GI complaints, dizziness, leg swelling. He has a history of chronic back pain with lumbar radiculopathy. Both of his legs. Certainly he has a history of bilateral neuropathy as well. He describes having significant leg with weakness and a fall back in August 2016. He reports that he fell because he tripped, and denies any history of syncope. He was admitted to [facility] at that time and was sent to [facility] and rehabilitation, which is where he currently resides. Past Medical History Past Medical History Patient's Medical History: (1) Idiopathic progressive neuropathy (2) Spinal stenosis (3) Radiculopathy of lumbar region (4) Frequent falls (5) Bladder outlet obstruction (6) Overweight Surgical History Patient's Surgical History: Cystoscopy Plantar fasciectomy. Hernia repair. Tonsillectomy Current Medications Home Meds Reported Medications Triamcinolone (Triamcinolone Acetonide) 15 Applic/15 G Cr, 1 APPLIC TOP BID Y for RASH, #30 GM 01/12/17 Magnesium Hydroxide (Milk of Magnesia) 400 Mg/5 Ml Oral.susp, 30 ML PO DAILY Y for CONSTIPATION 01/12/17 Diphenhydramine HCl (Benadryl) 25 Mg Capsule, 1 CAP PO DAILY Y for ITCHING, #30 CAP 1 Refill 01/12/17 Bisacodyl (Bisacodyl) 10 Mg Supp.rect, 1 SUPP RECTALLY DAILY Y for CONSTIPATION , SUPP 01/12/17 Acetaminophen (Tylenol Extra Strength) 500 Mg Tablet, 1-2 TAB PO Q6H Y for PAIN/ FEVER, TAB 01/12/17 Acetaminophen (Tylenol) 325 Mg Tablet, 2 TAB PO Q4HPRN, #30 TAB 01/12/17 Gabapentin (Gabapentin) 300 Mg Capsule, 2 CAP PO TID, #120 01/12/17 Acetaminophen (Tylenol Extra Strength) 500 Mg Tablet, 1 TAB PO BID Y for PAIN/ FEVER, TAB 01/12/17 Naproxen Sodium (Naproxen Sodium) 550 Mg Tablet, 1 TAB PO BID, #60 TAB 01/12/17 Cetirizine HCl (Zyrtec) 10 Mg Tablet, 1 TAB PO DAILY, TAB 01/12/17 Multivitamin (Multi-Day Vitamins) 1 Each Tablet, 1 TAB PO DAILY, #30 TAB 01/12/17 Meloxicam (Meloxicam) 7.5 Mg Tablet, 1 TAB PO DAILY, #30 01/12/17 Tamsulosin HCl (Tamsulosin HCl) 0.4 Mg Cap.er.24h, 1 CAP PO HS, #30 01/12/17 Allergies: Coded Allergies: Iodine and Iodide Containing Produc (Verified Allergy, Unknown, 01/13/17) NURSE REPORTS UNKNOWN REACTION Family History Family History: Father of leukemia at age 52. Mother at age 82 of complications from a stroke. His sister lives in [place] and she is healthy. He has a stepbrother who is healthy. Social History Smoking Status: Former smoker Does patient use chewing tobac: No # of Packs/Tins per Day: 1 # of Years: 50 Second Hand Exposure: No Quit Date: Aug 12, 2016 Substance Use Type: former substance user Alcohol Intake: former alcohol drinker (he used to drink a 12 pack of beer almost daily. He quit drinking in August 2016.) Service: Yes Current Occupational Status: disabled Advance Directives: No DPOA for Healthcare Only Review of Systems Constitutional: REPORTS: weakness, DENIES: chills, dizziness, fatigue, fever Eyes Vision: DENIES: vision changes ENMT Sinuses: NOT FOUND: congestion, rhinorrhea Cardiovascular DENIES: chest pain, dyspnea on exertion Rhythm/Rate: see HPI, DENIES: palpitations Pulmonary Respiratory: DENIES: cough, dyspnea GI Upper Abdomen: DENIES: abdominal swelling, nausea, pain, vomiting Lower Abdomen: DENIES: constipation, diarrhea General: see HPI Musculoskeletal Lumbar: pain Integumentary Skin: other (patient reports he has "jock itch"), DENIES: rash Neurological General: ataxia, headache (33 years), weakness (both legs) Psychiatric Psychiatric: DENIES: depression Hematologic/Lymphatic DENIES: anemia Allergic/Immunological DENIES: frequent infections All Other Systems All Other Systems: Reviewed (remainder of 10-point ROS Neg.) Physical Exam General General Nourishment: well nourished, well developed, thin Vital Signs Vital Signs Date Time Temp Pulse Resp B/P Pulse Ox O2 Delivery O2 Flow Rate FiO2 01/13/17 13:55 54 18 142/65 96 Room Air 01/13/17 12:31 97.6 Height (Feet): 6 Height (Inches): 3.00 Telemetry Rhythm: Sinus Bradycardia (with occasional PAC and occasional PVC) Eyes Brief: FOUND: PERRL, NOT FOUND: scleral icterus ENMT Brief: NOT FOUND: mucosa moist (slightly dry postop) Neck Brief: NOT FOUND: adenopathy Respiratory Auscultation: FOUND: normal, NOT FOUND: rales, wheezes Cardiovascular Auscultation: FOUND: rate (bradycardic), regular Peripheral Pulses: 2+: Dorasalis Pedis (L), Dorsalis Pedis (R), Radial (L), Radial (R) Edema: 0: Anasarca, Arm (L), Arm (R), Face, Leg (L), Leg (R) Abdomen Inspection: NOT FOUND: distention Palpation: FOUND: soft, NOT FOUND: involuntary guarding, rebound, tender, voluntary guarding Auscultation: FOUND: hypoactive Musculoskeletal (brief) Musculoskeletal Brief: NOT FOUND: deformity, tenderness Integumentary (brief) Integumentary Brief: FOUND: dry, pink, warm Neurologic (brief) Neurological Brief: FOUND: cranial 2-12 intact (grossly) Neurologic GCS Eye Opening: (4)Spontaneous GCS Verbal: (5)Oriented GCS Motor: (6)Obeys Commands RN Documented GCS Total: 15 Psychiatric (brief) FOUND: alert, attentive, normal affect, oriented Laboratory Laboratory Tests Test 01/13/17 09:18 01/13/17 13:22 White Blood Count 8.7T/MM3 Red Blood Count 4.25M/MM3 Hemoglobin 13.5GM/DL Hematocrit 41.0% Mean Corpuscular Volume 96.5UM3 Mean Corpuscular Hemoglobin 31.8UUG Mean Corpuscular Hemoglobin Concent 32.9GM/DL RDW Standard Deviation 43.9FL Platelet Count 253T/MM3 Mean Platelet Volume 10.0UM3 Immature Granulocyte % (Auto) 0.6% Neutrophils (%) (Auto) 58.4% Lymphocytes (%) (Auto) 29.4% Monocytes (%) (Auto) 6.1% Eosinophils (%) (Auto) 4.8% Basophils (%) (Auto) 0.7% Absolute Immature Granulocyte (auto 0.05T/MM3 Absolute Neutrophils (auto) 5.1T/MM3 Absolute Lymphocytes (auto) 2.6T/MM3 Absolute Monocytes (auto) 0.5T/MM3 Absolute Eosinophils (auto) 0.4T/MM3 Absolute Basophils (auto) 0.1T/MM3 Prothromb Time International Ratio 1.05 Activated Partial Thromboplast Time 30.8SEC Turbidity < 20 < 20 Sodium Level 146MEQ/L 144MEQ/L Potassium Level 4.2MEQ/L 4.1MEQ/L Chloride Level 108MEQ/L 111MEQ/L Carbon Dioxide Level 24MEQ/L 24MEQ/L Anion Gap 14MEQ/L 9MEQ/L Blood Urea Nitrogen 13.0MG/DL 12.0MG/DL Creatinine 0.9MG/DL 0.8MG/DL Glomerular Filtration Rate Calc 86 98 BUN/Creatinine Ratio 14RATIO 15RATIO Glucose Level 96MG/DL 89MG/DL Calculated Osmolality 281MOSM/KG 276MOSM/KG Calcium Level 9.5MG/DL 8.9MG/DL Total Bilirubin 0.90MG/DL 0.70MG/DL Icterus Index < 2 < 2 Aspartate Amino Transf (AST/SGOT) 29U/L 24U/L Alanine Aminotransferase (ALT/SGPT) 42U/L 38U/L Alkaline Phosphatase 71U/L 60U/L Total Protein 7.8G/DL 6.3G/DL Albumin 4.5G/DL 3.7G/DL Globulin 3.3G/DL 2.6G/DL Albumin/Globulin Ratio 1.4RATIO 1.4RATIO Chemistry Specimen Hemolysis < 15 < 15 Magnesium Level 2.0MG/DL Impression/Recommendation Problems: (1) Sinus arrhythmia Status: Acute (2) Hypernatremia Status: Acute (3) Spinal stenosis Status: Chronic (4) Bladder outlet obstruction Status: Chronic Assessment & Plan: S/P TURP on 01/13/[address] Manriquez (5) Frequent falls Status: Chronic (6) Radiculopathy of lumbar region Status: Chronic (7) Idiopathic progressive neuropathy Status: Chronic (8) Overweight Status: Chronic Impression 61-year-old male status post TURP by Dr. Manriquez. Sinus arrhythmia noted postoperatively. Recommendation Postoperative Sinus arrhythmia with occasional PACs and PVCs noted on telemetry. -EKG reviewed, shows sinus with occasional PACs. No ST segment elevation or depression. -Monitor rhythm on telemetry. -Blood pressure is stable. -Electrolytes were checked this morning before surgery and again postop. Sodium is slightly high at 146 on admission, but improved to 144 on repeat. Both potassium and magnesium -were normal. Lower back pain, antalgic gait, and leg weakness. -May need to consult PT and OT prior to discharge. -Patient is expecting to go back to [facility] rehabilitation. Assessment and plan were discussed with Dr. Moseley. Thank you for this consultation. We will follow Mr. Kinsey along with you during his hospital course. NATE MOSELEY MD 01/13/17 1618: Past Medical History Current Medications Home Meds Reported Medications Triamcinolone (Triamcinolone Acetonide) 15 Applic/15 G Cr, 1 APPLIC TOP BID Y for RASH, #30 GM 01/12/17 Magnesium Hydroxide (Milk of Magnesia) 400 Mg/5 Ml Oral.susp, 30 ML PO DAILY Y for CONSTIPATION 01/12/17 Diphenhydramine HCl (Benadryl) 25 Mg Capsule, 1 CAP PO DAILY Y for ITCHING, #30 CAP 1 Refill 01/12/17 Bisacodyl (Bisacodyl) 10 Mg Supp.rect, 1 SUPP RECTALLY DAILY Y for CONSTIPATION , SUPP 01/12/17 Acetaminophen (Tylenol Extra Strength) 500 Mg Tablet, 1-2 TAB PO Q6H Y for PAIN/ FEVER, TAB 01/12/17 Acetaminophen (Tylenol) 325 Mg Tablet, 2 TAB PO Q4HPRN, #30 TAB 01/12/17 Gabapentin (Gabapentin) 300 Mg Capsule, 2 CAP PO TID, #120 01/12/17 Acetaminophen (Tylenol Extra Strength) 500 Mg Tablet, 1 TAB PO BID Y for PAIN/ FEVER, TAB 01/12/17 Naproxen Sodium (Naproxen Sodium) 550 Mg Tablet, 1 TAB PO BID, #60 TAB 01/12/17 Cetirizine HCl (Zyrtec) 10 Mg Tablet, 1 TAB PO DAILY, TAB 01/12/17 Multivitamin (Multi-Day Vitamins) 1 Each Tablet, 1 TAB PO DAILY, #30 TAB 01/12/17 Meloxicam (Meloxicam) 7.5 Mg Tablet, 1 TAB PO DAILY, #30 01/12/17 Tamsulosin HCl (Tamsulosin HCl) 0.4 Mg Cap.er.24h, 1 CAP PO HS, #30 01/12/17 Allergies: Coded Allergies: Iodine and Iodide Containing Produc (Verified Allergy, Unknown, 01/13/17) NURSE REPORTS UNKNOWN REACTION Impression/Recommendation Recommendation Have independently interviewed and examined pt. Chart reviewed. Case discussed with my [employer]GER [employer]. Care plan developed with my supervision; agree with above. Consult placed due to cardiac arrhythmia post op. Not having chest pressure, pain, or palpitations. Breathing stable-occasional cough, but not increased SOA or congestion. No nausea or ab pain. Since staying in nursing facility has been improving-weight increasing, less unsteady when up. Lungs: decrease, no distress. No Wheezing. CV: regular with ectopic beats AB; soft nt/nd +BS MSE: awake alert appropriate Plan; TELE, IVF, Monitor electrolytes, monitor blood pressure. Supportive post op care as per Dr Manriquez. YOSHI COHN [employer]GER [employer] Jan 13, 2017 14:33 NATE MOSELEY MD Jan 13, 2017 16:18
[2017-01-13] MEDS: ACETAMINOPHEN 325 MG TABLET PO SCH ×4 (14:51→23:46)
[2017-01-13] MEDS: DOCUSATE SODIUM 100 MG CAPSULE PO SCH ×2 (15:28→20:40)
[2017-01-13] MEDS: GABAPENTIN 300 MG CAPSULE PO SCH ×2 (15:29→20:40)
[2017-01-13] MEDS ORDERED: NAPROXEN 220 MG TABLET PO SCH (17:30)
--- NOTE | 2017-01-13 18:46 | NUR ---
Summary Pt A&O X3. CBI going at this time. Pt has denied nausea. Scheduled Tylenol given to Pt, Pt states pain is tolerable with the Tylenol. VS stable on RA. Pt watching TV at this time. Side rails up X2, call light w/in reach, bed alarm on.
[2017-01-13] MEDS: MORPHINE SULFATE 4 MG SYRINGE IV PRN (20:27)
[2017-01-13] MEDS: SULFAMETHOXAZOLE/TMP 800mg/160mg TABLET PO SCH (20:40)
--- NOTE | 2017-01-14 01:45 | NUR ---
Chart Check 24 hour chart check completed
[2017-01-14 02:34] VITALS: BP 123/74; PULSE 81; RESP 20; TEMP 98.2; O2SAT 93
[2017-01-14] MEDS: ACETAMINOPHEN 325 MG TABLET PO SCH ×3 (04:01→13:04)
[2017-01-14] MEDS: MORPHINE SULFATE 4 MG SYRINGE IV PRN (04:02)
[2017-01-14 05:24] LABS: ANION GAP 13 MEQ/L (5-15); BUN/CREATININE RATIO 17 RATIO (6-26); CALCIUM 8.7 MG/DL (8.4-10.2); CHLORIDE 109 MEQ/L (98-107); CO2 - CARBON DIOXIDE 22 MEQ/L (22-30); CREATININE 0.7 MG/DL (0.8-1.5); GLOMERULAR FILTRATION RATE 114; GLUCOSE 90 MG/DL (75-110); POTASSIUM 4.3 MEQ/L (3.6-5); SODIUM 144 MEQ/L (134-144)
--- NOTE | 2017-01-14 06:30 | NUR ---
STATUS PATIENT A/OX3. PATIENT C/O PAIN AT NECK AND BACK. PRN MORPHINE WAS GIVEN .TYLENOL WAS GIVEN ON ROUTE SCHEDULE. NO BM AT NIGHT.PATIENT UP WITH ONE ASSIST. CBI IS GOING WELL.ON ROOM AIR.PATIENT DENIES CHEST PAIN,SOA,OR N/V. CALL LIGHT WITHIN REACH .CONTINUE TO MONITOR.
[2017-01-14 07:25] VITALS: BP 144/85; PULSE 83; RESP 18; TEMP 97.5; O2SAT 94
[2017-01-14 08:00] VITALS: PULSE 83; RESP 18
[2017-01-14] MEDS ORDERED: MELOXICAM 7.5 MG TABLET PO SCH (08:00)
[2017-01-14] MEDS: NORMAL SALINE 1,000 ML IV SCH (08:26)
[2017-01-14] MEDS: GABAPENTIN 300 MG CAPSULE PO SCH (08:56)
[2017-01-14] MEDS: SULFAMETHOXAZOLE/TMP 800mg/160mg TABLET PO SCH (08:56)
[2017-01-14] MEDS: DOCUSATE SODIUM 100 MG CAPSULE PO SCH (08:58)
[2017-01-14] MEDS ORDERED: CETIRIZINE 10 MG TABLET PO SCH (09:00)
[2017-01-14] MEDS ORDERED: MULTIVITAMIN + MINERAL TABLET PO SCH (09:00)
--- NOTE | 2017-01-14 09:18 | OPNOTEF ---
DATE OF OPERATION 01/13/2017 PREOPERATIVE DIAGNOSIS Obstructive benign prostatic hypertrophy with residual urine. POSTOPERATIVE DIAGNOSIS Obstructive benign prostatic hypertrophy with residual urine. OPERATION PERFORMED Gyrus transurethral resection of the prostate. SURGEON Valdez Manriquez MD ANESTHESIA Spinal INDICATION Mr. Kinsey is a 61-year-old man with severe urinary problems despite a small prostate gland. He has difficulty emptying out the bladder and has known obstructed bladder outlet from small prostate gland. Also has trabeculated bladder. After discussing options of treatment, patient elected to have TURP. Patient was brought in to undergo this procedure under spinal anesthesia. DESCRIPTION OF OPERATION Patient was taken to the cystoscopy suite and under spinal anesthesia, patient was placed in dorsal lithotomy position and prepped and draped in the usual fashion for cystoscopy. A #21 Kyrgyz rigid cystoscope was inserted into the bladder under direct vision without difficulty. There is mild tightness at the membranous urethra. Bladder is heavily trabeculated but no bladder tumor, foreign body or stone was seen. Bladder outlet is very tight despite small bilobar hyperplasia of the prostate. Ureteral orifices are normal bilaterally. Cystoscope was then removed and urethra calibrated and dilated to #30 Kyrgyz with a Ana sound. The #27 Kyrgyz Gyrus resectoscope sheath was inserted into the bladder with aid of obturator. Using bipolar Gyrus resecting loop, bladder neck was first resected between 2 and 11 o'clock. Resection was then extended to verumontanum. We then resected the anterior lobe between 2 and 11 o'clock to complete the resection in systematical fashion. Hemostasis was obtained and the prostate chips were evacuated with Ellik. After assuring complete evacuation of the prostatic chips and satisfactory hemostasis, resectoscope was removed and a #24 Kyrgyz 3-way Hanley catheter with 30 cc balloon was inserted into the bladder with aid of catheter stylette. Balloon was inflated and catheter was irrigated by hand until clear. Continuous bladder irrigation was started and patient was taken to the recovery room in stable condition. TATO
[2017-01-14 11:11] VITALS: BP 135/76; PULSE 73; RESP 18; TEMP 98.1; O2SAT 94
[2017-01-14 11:30] VITALS: BP 133/83; PULSE 71; RESP 16; TEMP 97.3; O2SAT 94
--- NOTE | 2017-01-14 13:37 | NUR ---
DIYA CM IN TO VISIT WITH PT. HE IS ALERT AND ORIENTED. HE REPORTS THAT HE RESIDES AT [facility] AND [facility]. HE WOULD LIKE CM TO ARRANGE A RIDE FROM THE FACILITY. PT IS GIVEN CM CONTACT INFORMATION. CM SPOKE WITH [facility]. CALL SAHRA AT P#[phone] TO ARRANGE TRANSPORT. F#[phone] Addendum: 01/14/17 at 1340 by ERNIE WATKINS RN Amended: Links added.
[2017-01-14] MEDS ORDERED: SULF1TAB3 PO (15:01)
--- NOTE | 2017-01-14 16:00 | NUR ---
Discharge Pt discharged at this time via ambulatory with a Pts own walker through the ER entrance. Pt discharged to a [facility] rec[facility]. IV cather DC'd prior to discharge by ALLISON Naidu. 20G rodriguez catheter in place at the time of discharge. VS stable on RA. Discharge packet and instructions sent with Pt. Report called to Pilar Leblanc LPN.
== END 2017-01-14 16:00 ==
LOC: SRG 08:48 → SCU 08:48
PROVIDERS: ATTEND Specialist
DX: N40.1 Benign prostatic hyperplasia with lower urinary tract symptoms (principal); N13.8 Other obstructive and reflux uropathy; R33.8 Other retention of urine; N41.1 Chronic prostatitis; Z79.1 Long term (current) use of non-steroidal anti-inflammatories (NSAID); Z79.899 Other long term (current) drug therapy; Z91.041 Radiographic dye allergy status; Z87.891 Personal history of nicotine dependence
CPT/HCPCS: 36415; 52601; 80048; 80053; 83735; 85025; 85610; 85730; 88305; 93005; A9270; J1956; J2250; J3010; J7030; J7060; J7120